=== PATIENT | female | born 1980 | race American Indian/Alaskan Native ===

== ENCOUNTER 2016-10-21 11:51 | Day surgery (SDC) | payer OTHER ==
[2016-10-21] MEDS ORDERED: ANCEF/STERILE WATER 2 GM/20 ML IV NR (12:00)
[2016-10-21 13:08] LABS: Hematocrit 32.3 % (30.3-42.9); Hemoglobin 10.2 gm/dl (10.1-14.3)
--- NOTE | 2016-10-21 13:15 | Anesthesia Consultation ---
Anesthesia Consult and Med Hx Date of service: 10/21/16 - Airway Anesthetic Teeth Evaluation: Good ROM Head & Neck: Adequate Mental/Hyoid Distance: Adequate Mallampati Class: Class II Intubation Access Assessment: Probably Good - Pre-Operative Health Status ASA Pre-Surgery Classification: ASA2 Proposed Anesthetic Plan: General - Pulmonary Hx Smoking: No Hx Sleep Apnea: No (MARY PRE SCREEN LOW RISK) - Cardiovascular System Hx Hypertension: No Hx Cardia Arrhythmia: Yes Hx Heart Murmur: Yes (CAUSES NO PROBLEMS) - Central Nervous System Hx Seizures: No Hx Back Pain: Yes Hx Psychiatric Problems: No - Gastrointestinal Hx Gastroesophageal Reflux Disease: No - Endocrine Hx Renal Disease: Yes (kidney stones, s/p b/l stents) Hx End Stage Renal Disease: No - Hematic Hx Anemia: Yes - Other Systems Hx Alcohol Use: Yes (rare) Hx Substance Use: No Hx Cancer: No Hx Obesity: No
--- NOTE | 2016-10-21 13:16 | Anesthesia Day of Surgery ---
Anesthesia Day of Surgery - Day of Surgery Patient Examined: Yes Patient H&P Reviewed: Yes Patient is NPO: Yes
[2016-10-21] MEDS ORDERED: NACL 0.9% 1000 ML 1,000 ML IV SCH (14:00)
[2016-10-21] MEDS ORDERED: PEPCID IV NR (14:00)
[2016-10-21] MEDS ORDERED: VERSED IV NR (14:00)
[2016-10-21] MEDS ORDERED: DIPRIVAN 10 MG/ML IV ONE (14:50)
[2016-10-21] MEDS ORDERED: XYLOCAINE MPF 2% ONE ×2 (14:58)
[2016-10-21] MEDS ORDERED: DILAUDID ONE (14:59)
[2016-10-21] MEDS ORDERED: ZOFRAN ONE (16:11)
[2016-10-21] MEDS ORDERED: WATER FOR IRRIG STERILE IR ONE (16:30)
[2016-10-21] MEDS ORDERED: NACL 0.9% 1000 ML 1,000 ML ONE (16:40)
[2016-10-21] MEDS ORDERED: TORADOL ONE (16:47)
--- NOTE | 2016-10-21 18:00 | Short Stay Summary ---
Short Stay Documentation Date of service: 10/21/16 - History H&P: obtained from office - Allergies and Medications Current Medications: Allergies No Known Allergies Allergy (Verified 04/16/14 09:41) Home Medications Medication Instructions Recorded Confirmed Last Taken Type Sulfamethoxazole/Trimethoprim 1 each PO BID 10/18/16 10/21/16 10/20/16 22:00 History [Bactrim DS TAB] Active Medications Cefazolin Sodium (Ancef/Sterile Water 2 Gm/20 Ml) 2 gm IV PREOP NR Stop: 10/21/16 23:00 Famotidine (Pepcid) 20 mg IV PREOP NR Stop: 10/21/16 23:59 Last Admin: 10/21/16 13:35 Dose: 20 mg Sodium Chloride (Nacl 0.9% 1000 Ml) 1,000 mls @ 100 mls/hr IV DIRECT TONA Last Admin: 10/21/16 13:33 Dose: 100 mls/hr Midazolam HCl (Versed) 2 mg IV PREOP NR Stop: 10/21/16 23:59 Last Admin: 10/21/16 13:57 Dose: 2 mg - Brief post op/procedure progress note Date of procedure: 10/21/16 Pre-op diagnosis: trent renal stones, retained stent Post-op diagnosis: same Procedure: cysot rt renal eswl, cysto stnet removal of retained stent and placemnt of 6x26 stent rpg Anesthesia: GETA Findings: dif to remove stent w/ eswl required Surgeon: MEAGAN BROWN Estimated blood loss: minimal Pathology: none Condition: stable - Hospital course Hospital course: orpacu home - Disposition Condition at discharge: Good Disposition: DISCHARGED TO HOME OR SELFCARE Short Stay Discharge Plan Activity: advance as tolerated Diet: advance as tolerated Additional Instructions: NO STRAINING. INCREASE ORAL FLUIDS. STRAIN ALL URINE.DO NOT PULL THE STRING. CALL FOR F/U APPT. Follow up with: MEAGAN BROWN MD [Staff Physician] - 7 Days Forms: Outpatient Surgery DC Inst.
--- NOTE | 2016-10-21 18:01 | Post Anesthesia Evaluation ---
- Post Anesthesia Evaluation Patient Participated: Yes Airway Patent: Yes Stable Respiratory Function: Yes Temp > 96.8F: Yes Pain Manageable: Yes Adequeate Hydration: Yes Anesthesia Complications: No Block Receding Appropriately: Not Applicable
[2016-10-21 21:03] VITALS: BP 118/64
--- NOTE | 2016-10-25 08:49 | Operative Report ---
PREOPERATIVE DIAGNOSES: 1. 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 2. History of noncompliance. 3. Bilateral retained stent. 4. Bilateral large renal stone. POSTOPERATIVE DIAGNOSES: 1. 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 2. History of noncompliance. 3. Bilateral retained stent. 4. Bilateral large renal stone. PROCEDURE: Cystoscopy, right ESWL, and right stent removal. SURGEON: Pacheco Hathaway MD. ANESTHESIA: General. SPECIMENS: None. ESTIMATED BLOOD LOSS: Minimal. COMPLICATIONS: None. FINDINGS: No deviation. Stent retained, difficult to pull out required fragmentation and encrustation. CLINICAL INDICATIONS: The patient has a long history of noncompliance. She ____ been had a stent in for well over 18 months. She has large stones understands both before and after the surgery that patient must follow up. We are now trying to get back to baseline with removing and placing stent. The patient was counseled and desired to proceed. DESCRIPTION OF PROCEDURE: The patient was transferred to the OR suite in supine position. Anesthesia begun, dorsal lithotomy, prepped and draped in standard fashion. A 22-Czech scope passed. Attempted passage of wire and pulling out stent unsuccessful due to with some encrustation of the distal J. We began our extracorporeal shock wave lithotripsy. We shocked the right stone encrustation proximal J, which was fragmented into smaller and smaller pieces, did take almost most of the shocks. Attempted pulling stent, but was continued difficulty required shocking the almost full shocks to loosen the proximal J. Eventually, we were able to pull the stent out. The wire was backloaded on the cystoscope. A 6 x 28 double-J stent was passed over the wire under direct and fluoroscopic visualization when the wire and string was removed, nice proximal and distal J. Bladder drained. The patient awakened and transferred to the PACU in good and stable condition. JOB# [id number] ATS/NTS
== END 2016-10-21 18:45 | disposition home or self-care (01) ==
LOC: OR 11:51
PROVIDERS: ATTEND Urology
DX: N20.0 Calculus of kidney (principal); D64.9 Anemia, unspecified; Z72.89 Other problems related to lifestyle
CPT/HCPCS: 36415; 50590; 52332; 81025; 85014; 85018; A4217; C1758; C1769; C2617; J0690; J1170; J1885; J2250; J2405; J2704; J7030; Q9967

== ENCOUNTER 2016-11-18 06:31 | Day surgery (SDC) | payer OTHER ==
[~2016-11-18 06:31] MED LIST: PEPCID PO NR; VERSED IV NR
[2016-11-18] MEDS ORDERED: NACL BACTERIOSTATIC INFILTRATI ONE (07:26)
[2016-11-18] MEDS ORDERED: DIPRIVAN 10 MG/ML IV ONE (07:44)
[2016-11-18] MEDS ORDERED: XYLOCAINE MPF 2% ONE (07:44)
[2016-11-18] MEDS ORDERED: SUBLIMAZE ONE (07:44)
[2016-11-18] MEDS: NACL 0.9% 1000 ML 1,000 ML IV SCH ×2 (07:45→10:39)
[2016-11-18] MEDS ORDERED: VERSED IV NR (08:00)
--- NOTE | 2016-11-18 08:04 | Anesthesia Consultation ---
Anesthesia Consult and Med Hx Date of service: 11/18/16 - Airway Anesthetic Teeth Evaluation: Good ROM Head & Neck: Adequate Mental/Hyoid Distance: Adequate Mallampati Class: Class II Intubation Access Assessment: Probably Good - Pulmonary Exam CTA: Yes - Cardiac Exam Cardiac Exam: RRR - Pre-Operative Health Status ASA Pre-Surgery Classification: ASA2 Proposed Anesthetic Plan: General - Pulmonary Hx Smoking: No Hx Sleep Apnea: No (MARY PRE SCREEN LOW RISK) - Cardiovascular System Hx Hypertension: No Hx Cardia Arrhythmia: Yes (patient states "I have an irregular heartbeat", unknown etiology) Hx Heart Murmur: Yes (CAUSES NO PROBLEMS) - Central Nervous System Hx Seizures: No Hx Back Pain: Yes Hx Psychiatric Problems: No - Gastrointestinal Hx Gastroesophageal Reflux Disease: No - Endocrine Hx Insulin Dependent Diabetes: No - Hematic Hx Anemia: Yes - Other Systems Hx Alcohol Use: Yes (rare) Hx Substance Use: No Hx Cancer: No Hx Obesity: No
--- NOTE | 2016-11-18 08:05 | Anesthesia Day of Surgery ---
Anesthesia Day of Surgery - Day of Surgery Patient Examined: Yes Patient H&P Reviewed: Yes Patient is NPO: Yes
[2016-11-18 08:28] LABS: Hematocrit 32.7 % (30.3-42.9); Hemoglobin 10.3 gm/dl (10.1-14.3)
[2016-11-18] MEDS ORDERED: NACL 0.9% ONE (08:47)
[2016-11-18] MEDS ORDERED: ZOFRAN ONE (09:02)
[2016-11-18] MEDS ORDERED: DECADRON ONE (09:02)
[2016-11-18] MEDS ORDERED: NACL 0.9% IR ONE (09:17)
[2016-11-18] MEDS ORDERED: OMNIPAQUE 300 MG/50 ML (CATH LAB) IV ONE (09:52)
[2016-11-18] MEDS ORDERED: ANCEF/STERILE WATER 2 GM/20 ML IV NR (10:00)
[2016-11-18] MEDS ORDERED: NEO SYNEPHRINE ONE (10:42)
[2016-11-18 11:16] VITALS: BP 125/73
--- NOTE | 2016-11-18 12:28 | Short Stay Summary ---
Short Stay Documentation Date of service: 11/18/16 - History H&P: obtained from office - Allergies and Medications Current Medications: Allergies No Known Allergies Allergy (Verified 04/16/14 09:41) Home Medications Medication Instructions Recorded Confirmed Last Taken Type Sulfamethoxazole/Trimethoprim 1 each PO BID 10/18/16 11/18/16 11/15/16 History [Bactrim DS TAB] - Brief post op/procedure progress note Date of procedure: 11/18/16 Pre-op diagnosis: trent renasl stones, retained stent Post-op diagnosis: same Procedure: cysto rpg left eswl, stent removal, placement 6x28 Anesthesia: GETA Findings: encrusted stent Surgeon: MEAGAN BROWN Pathology: none Specimen disposition: to lab Condition: stable - Hospital course Hospital course: or pacu home - Disposition Condition at discharge: Good Disposition: DISCHARGED TO HOME OR SELFCARE Short Stay Discharge Plan Activity: advance as tolerated Follow up with: MEAGAN BROWN MD [Staff Physician] - 7 Days
--- NOTE | 2016-11-22 01:41 | Operative Report ---
PREOPERATIVE DIAGNOSIS: Bilateral renal large stones, retained stent. POSTOPERATIVE DIAGNOSIS: Bilateral renal large stones, retained stent. PROCEDURE: Cystoscopy; RPG; left ESWL of the stent to remove fragments, encrusted, and stones adjacent to the stent; stent removal; and placement of 6 x 28 double J stent. ANESTHESIA: General. FINDINGS: Encrusted stent. SURGEON: Pacheco Hathaway MD. PATHOLOGY: None. DISPOSITION: Stable to PACU. SPECIMENS: There were no specimens. CONDITION: Stable. CLINICAL INDICATIONS: The patient was counseled RCBA, positive history of noncompliance, complete bilateral staghorns involving down to the ureter, has had multiple procedures, but does not follow up for 1-2 years at a time. She is willing to follow up through with her treatment, but the last stents have been in there for 1-1/2 to 2 years. Approximately 4 weeks ago, we were able to remove the encrusted right stent and placed a new stent and currently, we are doing this on the left side. These were all staged procedure, required multiple procedures including additional percutaneous nephrolithotomy, additional ESWL, additional shockwave treatment of the stone, additional possible open surgeries and stent. She had antibiotics and SCDs. DESCRIPTION OF PROCEDURE: The patient was transferred to the OR suite in supine position, anesthesia, dorsal lithotomy, prepped and draped in standard fashion. A 22-Bulgarian scope passed inspecting the new stent that had been placed approximately 1 month ago. It was surprising to see that there was some encrustation already on that side. Left distal J of the old stent was significantly encrusted. Biplanar fluoroscopy attempted manipulating. A Glidewire was passed up to left renal pelvis adjacent to the stent, attempted pulling the stent, unable to uncurl the proximal J shockwave. ESWL had been begun. We had started targeting the proximal J to loosen the stones attached to this stent and additionally, there was adjacent primary stone in the kidney that was just adjacent and portion of this was fragmented adjacent to this with the shockwave lithotripsy. We then did further shocking of the stent, attempted pulling this further down to the mid ureter, still unable to uncurl proximal J, additional fragmentation were undertaken, contrast injected. There was a fairly large ureter, but no hydronephrosis on preoperative ultrasound. With manipulation and ESWL, we were able to eventually loosen the proximal J, stent was removed, wire backloaded on cystoscope. A 6 x 28 double-J stent was passed over the wire under direct and fluoroscopic visualization. When the wire and string was removed, nice proximal and distal J. Bladder irrigated and drained. The patient awakened and transferred to PACU in good and stable condition. PLAN: This is a multiple staged procedure. The patient will need multiple surgeries including removal, replacement of stents and ESWL, ureteroscopy, and possible percutaneous nephrolithotomy. JOB# [id number] ATS/NTS
== END 2016-11-18 11:56 | disposition home or self-care (01) ==
LOC: OR 06:31
PROVIDERS: ATTEND Urology
DX: N20.0 Calculus of kidney (principal); D64.9 Anemia, unspecified; Z72.89 Other problems related to lifestyle
CPT/HCPCS: 36415; 50590; 52332; 81025; 85014; 85018; A4217; C1758; C1769; C2617; J0690; J1100; J2250; J2370; J2405; J2704; J3010; J7030; Q9967

== ENCOUNTER 2016-12-16 06:39 | Day surgery (SDC) | payer OTHER ==
[2016-12-16] MEDS ORDERED: NACL BACTERIOSTATIC INFILTRATI ONE (07:44)
[2016-12-16] MEDS ORDERED: NACL 0.9% 1000 ML 1,000 ML ONE (07:44)
--- NOTE | 2016-12-16 07:47 | Anesthesia Day of Surgery ---
Anesthesia Day of Surgery - Day of Surgery Patient Examined: Yes Patient H&P Reviewed: Yes Patient is NPO: Yes
--- NOTE | 2016-12-16 07:49 | Anesthesia Consultation ---
Anesthesia Consult and Med Hx Date of service: 12/16/16 - Airway Anesthetic Teeth Evaluation: Good, Crowns (left bottom molar) ROM Head & Neck: Adequate Mental/Hyoid Distance: Adequate Mallampati Class: Class II Intubation Access Assessment: Probably Good - Pulmonary Exam CTA: Yes - Cardiac Exam Cardiac Exam: RRR - Pre-Operative Health Status ASA Pre-Surgery Classification: ASA2 Proposed Anesthetic Plan: General - Pulmonary Hx Smoking: No Hx Sleep Apnea: No (MARY PRE SCREEN LOW RISK) - Cardiovascular System Hx Hypertension: No Hx Cardia Arrhythmia: Yes (patient states "I have an irregular heartbeat", unknown etiology) Hx Heart Murmur: Yes (CAUSES NO PROBLEMS) - Central Nervous System Hx Seizures: No Hx Back Pain: Yes (FROM STONES) Hx Psychiatric Problems: No - Gastrointestinal Hx Gastroesophageal Reflux Disease: No - Endocrine Hx Insulin Dependent Diabetes: No - Hematic Hx Anemia: Yes - Other Systems Hx Alcohol Use: Yes (rare) Hx Substance Use: No Hx Cancer: No Hx Obesity: No
[2016-12-16] MEDS ORDERED: VERSED IV NR (08:00)
[2016-12-16] MEDS ORDERED: NACL 0.9% 1000 ML 1,000 ML IV SCH (08:00)
[2016-12-16] MEDS ORDERED: PEPCID PO NR (08:00)
[2016-12-16] MEDS ORDERED: DIPRIVAN 10 MG/ML IV ONE (08:22)
[2016-12-16] MEDS ORDERED: XYLOCAINE MPF 2% ONE (08:22)
[2016-12-16] MEDS ORDERED: SUBLIMAZE ONE (08:24)
[2016-12-16] MEDS ORDERED: MORPHINE IV PRN (08:30)
[2016-12-16] MEDS ORDERED: ZOFRAN IV PRN (08:30)
[2016-12-16] MEDS ORDERED: PERCOCET 5/325 PO PRN (08:30)
[2016-12-16] MEDS ORDERED: REGLAN ONE (08:51)
[2016-12-16] MEDS ORDERED: ZOFRAN ONE (08:51)
[2016-12-16] MEDS ORDERED: ANCEF/STERILE WATER 2 GM/20 ML IV NR (09:00)
[2016-12-16] MEDS ORDERED: NEO SYNEPHRINE/NS Syringe(OR USE) IV ONE (09:00)
--- NOTE | 2016-12-16 09:12 | Short Stay Summary ---
Short Stay Documentation Date of service: 12/16/16 - History H&P: obtained from office - Allergies and Medications Current Medications: Allergies No Known Allergies Allergy (Verified 04/16/14 09:41) Home Medications Medication Instructions Recorded Confirmed Last Taken Type Sulfamethoxazole/Trimethoprim 1 each PO BID 10/18/16 11/29/16 11/15/16 History [Bactrim DS TAB] Nitrofurantoin [place]/M-Cryst 100 mg PO Q12HR 11/29/16 11/29/16 Unknown History [Macrobid CAP] Active Medications Cefazolin Sodium (Ancef/Sterile Water 2 Gm/20 Ml) 2 gm IV PREOP NR Stop: 12/16/16 23:59 Famotidine (Pepcid) 20 mg PO PREOP NR Stop: 12/16/16 15:00 Last Admin: 12/16/16 08:00 Dose: 20 mg Sodium Chloride (Nacl 0.9% 1000 Ml) 1,000 mls @ 75 mls/hr IV DIRECT TONA Last Admin: 12/16/16 07:45 Dose: 75 mls/hr Midazolam HCl (Versed) 2 mg IV PREOP NR Stop: 12/16/16 23:59 Last Admin: 12/16/16 08:15 Dose: 2 mg Morphine Sulfate (Morphine) 2 mg IV Q10MIN PRN PRN Reason: Pain, Moderate (4-6) Stop: 12/16/16 16:00 Ondansetron HCl (Zofran) 4 mg IV ONCE PRN PRN Reason: Nausea And Vomiting Stop: 12/16/16 15:00 Oxycodone/Acetaminophen (Percocet 5/325) 1 tab PO ONCE PRN PRN Reason: Pain, Moderate (4-6) Stop: 12/16/16 15:00 - Brief post op/procedure progress note Date of procedure: 12/16/16 Pre-op diagnosis: rt reanl stone Post-op diagnosis: same Procedure: rt eswl Anesthesia: GIO Surgeon: AIMEE HART Estimated blood loss: none Pathology: none Condition: stable - Hospital course Hospital course: percocet 10 & post op info on chart, strainer - Disposition Condition at discharge: Stable Disposition: DISCHARGED TO HOME OR SELFCARE Short Stay Discharge Plan Follow up with: PRIMARY CARE,MD [Primary Care Provider] - 7 Days
--- NOTE | 2016-12-16 09:23 | Post Anesthesia Evaluation ---
- Post Anesthesia Evaluation Patient Participated: Yes Airway Patent: Yes Stable Respiratory Function: Yes Nausea/Vomiting: No Temp > 96.8F: Yes Pain Manageable: Yes Adequeate Hydration: Yes Anesthesia Complications: No
--- NOTE | 2016-12-16 09:36 | Operative Report ---
PREOPERATIVE DIAGNOSIS: Right renal stone 8 mm. POSTOPERATIVE DIAGNOSIS: Right renal stone 8 mm status post bilateral stent placement and lithotripsy in the past. PROCEDURE: Right extracorporal shock wave lithotripsy (staged procedure). SURGEON: Ananda Howard MD ANESTHESIA: General. ANESTHESIOLOGIST: Kellie José MD ESTIMATED BLOOD LOSS: Minimal. FLUIDS: Crystalloid. COMPLICATIONS: No complications. INDICATIONS: This patient is a 36-year-old female seen by Dr. Hathaway in the office. Long history of stones status post lithotripsy in the past. She has approximately [address], has bilateral stents at this time. She presents now for surgical intervention. DESCRIPTION OF PROCEDURE: The patient was taken to the operative suite, placed in a supine position. After adequate general anesthesia, her stone was localized in 2 planes using fluoroscopy. Extracorporal shock wave lithotripsy was administered with a maximum kV of 5 and 2500 shocks. Renal pause after 200 shocks for 5 minutes was performed. Adequate fragmentation could be appreciated. She tolerated the procedure well. She was extubated and taken to recovery room. She will go home on Percocet 10 and follow up in the office. JOB# [id number] C/LUCIE
[2016-12-16 11:10] VITALS: BP 120/77
== END 2016-12-16 11:10 | disposition home or self-care (01) ==
LOC: OR 06:39 → EDSEX 08:30 → OR 11:10
PROVIDERS: ATTEND Urology
DX: N20.0 Calculus of kidney (principal); D64.9 Anemia, unspecified; Z72.89 Other problems related to lifestyle
CPT/HCPCS: 50590; 81025; J0690; J2250; J2370; J2405; J2704; J2765; J3010; J7030

== ENCOUNTER 2021-01-26 10:15 | Outpatient (CLI) | payer BC ==
--- NOTE | 2021-01-26 11:40 | Cat Scan Report ---
CT ABDOMEN AND PELVIS WITHOUT CONTRAST HISTORY: CALCULUS OF KIDNEY; pt having surgery on Tuesday. . COMPARISON: None. TECHNIQUE: CT images of the abdomen and pelvis were obtained without administration of intravenous co ntrast. All CT scans at this location are performed using CT dose reduction for ALARA by means of au tomated exposure control. FINDINGS: Lungs/bones: Lung bases are clear Abdomen/pelvis: Within limits of a noncontrast exam the liver, spleen, adrenal glands, pancreas, gal lbladder and upper GI tract appear normal. No bowel obstruction is seen. There are bilateral double-J ureteral stents. Persistent severe bilateral hydroureteronephrosis is se en. Large areas of calcification are seen within the left kidney with within the calyces cortex and i n the region of the left femoral ureteral stent. There are also nonobstructing calcifications within the right kidney. Within the mid to distal left ureter there are calcifications surrounding the left ureteral stent largest measuring 5 mm. Calcifications surrounding the distal left ureteral stent sonya uring 6 mm. Multiple prominent bladder calcifications are seen. Within the left inferior renal pole w ith a large calcifications measures 1.2 cm. IMPRESSION: 1. Severe bilateral hydroureteronephrosis with marked dilatation which persists after ureteral stent placement. Calcifications are seen within both the kidney, calyces and surrounding the proximal urete ral stones. There are also additional calcifications adjacent to the stent within the ureters with ur eteral dilatation and inflammatory change. Bladder calcifications also noted. Signer Name: Ayad Monahan MD Signed: 01/26/2021 11:36 AM Workstation Name: [id number]
== END 2021-01-26 10:16 | disposition home or self-care (01) ==
LOC: CT 10:15
PROVIDERS: ATTEND Urology
DX: N13.30 Unspecified hydronephrosis (principal); N20.0 Calculus of kidney; Z96.0 Presence of urogenital implants
CPT/HCPCS: 74176

== ENCOUNTER 2021-01-29 07:30 | Day surgery (SDC) | payer BC ==
[2021-01-29] MEDS ORDERED: LACTATED RINGERS 1,000 ML ONE (08:30)
[2021-01-29] MEDS ORDERED: HYDROmorphone 1 MG/1 ML INJ IV PRN ×2 (08:40)
--- NOTE | 2021-01-29 08:41 | Anesthesia Day of Surgery ---
Anesthesia Day of Surgery - Day of Surgery Patient Examined: Yes Patient H&P Reviewed: Yes Patient is NPO: Yes
--- NOTE | 2021-01-29 08:41 | Anesthesia Consultation ---
Anesthesia Consult and Med Hx Date of service: 01/29/21 - Airway Anesthetic Teeth Evaluation: Good ROM Head & Neck: Adequate Mental/Hyoid Distance: Adequate Mallampati Class: Class I Intubation Access Assessment: Good - Pre-Operative Health Status ASA Pre-Surgery Classification: ASA1 Proposed Anesthetic Plan: General - Pulmonary Hx Smoking: No Hx Sleep Apnea: No (MARY PRE SCREEN LOW RISK) - Cardiovascular System Hx Hypertension: No Hx Cardia Arrhythmia: Yes (patient states "I have an irregular heartbeat", unknown etiology) Hx Heart Murmur: Yes (CAUSES NO PROBLEMS) - Central Nervous System Hx Seizures: No Hx Back Pain: Yes (FROM STONES) Hx Psychiatric Problems: No - Gastrointestinal Hx Gastroesophageal Reflux Disease: No - Endocrine Hx Renal Disease: Yes (Stones) Hx Insulin Dependent Diabetes: No - Hematic Hx Anemia: Yes (NOT RECENT) - Other Systems Hx Alcohol Use: Yes (rare) Hx Substance Use: No Hx Cancer: No Hx Obesity: No
[2021-01-29] MEDS ORDERED: LIDOCAINE MPF (2%) 20 MG/1 ML VIAL 5 ML ONE (08:44)
[2021-01-29] MEDS ORDERED: propofoL 200 MG/20 ML VIAL IV ONE (08:44)
[2021-01-29] MEDS ORDERED: fentaNYL 100 MCG/2 ML INJ ONE (08:44)
[2021-01-29] MEDS ORDERED: dexAMETHasone 20 MG/5 ML VIAL ONE (08:44)
[2021-01-29] MEDS ORDERED: LACTATED RINGERS 1,000 ML IV SCH (09:00)
[2021-01-29] MEDS ORDERED: MIDAZOLAM 2 MG/2 ML INJ IV NR (09:00)
[2021-01-29] MEDS ORDERED: ONDANSETRON 4 MG/2 ML INJ IV PRN (09:30)
--- NOTE | 2021-01-29 10:10 | Post Operative Note ---
Pre-op diagnosis: calcified stents Post-op diagnosis: same Findings: severe calcified stenrts Procedure: r litho cysto laser eswl Anesthesia: GETA Surgeon: HAN WHITAKER Estimated blood loss: none Pathology: none Condition: stable Disposition: PACU
--- NOTE | 2021-01-29 10:11 | Discharge Summary ---
Short Stay Discharge Plan Activity: other (no straining ) Weight Bearing Status: Full Weight Bearing Diet: regular Special Instructions: other (inc fluids ) Durable Medical Equipment Needed Upon Discharge: other (has stents ) Follow up with: JOHN THAYER MD [Primary Care Provider] - 7 Days HAN WHITAKER MD [Staff Physician] - 7 Days
[2021-01-29] MEDS ORDERED: PHENYLEPHRINE/NS 1,000 MCG/10 ML SYRINGE (OR USE) IV ONE (10:25)
[2021-01-29] MEDS ORDERED: WATER FOR IRRIG STERILE 1,500 ML BOTTLE IR ONE (10:30)
[2021-01-29] MEDS ORDERED: HYDROmorphone 1 MG/1 ML INJ ONE (10:55)
[2021-01-29 13:04] VITALS: BP 130/68
--- NOTE | 2021-01-29 13:50 | Operative Report ---
DATE OF SURGERY: 01/29/2021 PREOPERATIVE DIAGNOSES: Calcified stents that were in for 4 years, poor followup, poorly compliant. POSTOPERATIVE DIAGNOSES: Calcified stents that were in for 4 years, poor followup, poorly compliant. PROCEDURE: Right ESWL with excellent fragmentation and cystoscopy, laser of bladder stones around the stents and attempted to removal of stent with reinsertion of right double-J stent. SURGEON: Dr. Sharma. ANESTHESIA: General. FINDINGS: This is a woman who has been poorly compliant, knew she had a stent left in for 4 years. She has chronic renal insufficiency, hydronephrosis. She now presents for attempted stent removal on the right side. On the left side, there was much more stone burden. We will stage this, she will need multiple procedures over the next few months and may end up losing her kidneys. DESCRIPTION OF PROCEDURE: The patient was brought to the OR and placed on the operating table. Following induction of anesthesia, placed right flank over the F2 focal point. The stones were seen around the stent. Shocks were begun at 1 kV increased to maximum of 7 kV. Total of 2500 shocks were given. Excellent fragmentation around the stent was achieved. It looked very promising. Cystoscopy showed large amount of stone around the stents. We worked very hard with the laser and took most of the stone off the stents. Once we saw the opening, we placed a wire up the right ureter and open ended 6-Togolese coil was placed in the kidney. We tried pulling the stent, it actually came out about 4 or 5 cm, but then it got held up after the UPJ. We had the open ended and we exchanged it with the double J. We did not want to pull, we will let this sit and we will have to go up with the flexible ureteroscope over the next few weeks. The patient tolerated the procedure well. Part of the stent was trimmed, so it would not come out the urethra. We left the Ferrera. She was brought to recovery room in stable condition post-lithotripsy, laser of stones and a second stent placed in the right ureter. TID: [id number] RECEIPT: [id number] VICENTE/ANGEL
--- NOTE | 2021-01-29 16:20 | Post Anesthesia Evaluation ---
- Post Anesthesia Evaluation Patient Participated: Yes Airway Patent: Yes Stable Respiratory Function: Yes Nausea/Vomiting: No Temp > 96.8F: Yes Pain Manageable: Yes Adequeate Hydration: Yes Anesthesia Complications: No Block Receding Appropriately: Not Applicable Patient on Ventilator: No
== END 2021-01-29 14:20 | disposition home or self-care (01) ==
LOC: OR 07:30
PROVIDERS: ATTEND Urology
DX: N13.2 Hydronephrosis with renal and ureteral calculous obstruction (principal); T83.89XA Other specified complication of genitourinary prosthetic devices, implants and grafts, initial encounter; I42.9 Cardiomyopathy, unspecified; Z98.890 Other specified postprocedural states; Z79.899 Other long term (current) drug therapy; Z72.89 Other problems related to lifestyle; Y92.89 Other specified places as the place of occurrence of the external cause; Y82.8 Other medical devices associated with adverse incidents
CPT/HCPCS: 50590; 52356; 81025; C1758; C1769; C2617; J1100; J1170; J2250; J2370; J2405; J2704; J3010; J7120; Q9967

== ENCOUNTER 2021-03-04 12:45 | Inpatient (IN) | payer BC ==
[~2021-03-04 12:45] MED LIST changes: +IOHEXOL 300 MG/ML 50ML IV ONE; +LACTATED RINGERS 1,000 ML IV SCH; +MIDAZOLAM 2 MG/2 ML INJ IV NR; -PEPCID PO NR; -VERSED IV NR; +WATER FOR IRRIG STERILE 2000 ML IR ONE
[2021-03-04] MEDS ORDERED: ceFAZolin/Water 2 GM/20 ML 2 GM/20 ML SYRINGE IV ONE (14:22)
--- NOTE | 2021-03-04 14:35 | Anesthesia Day of Surgery ---
Anesthesia Day of Surgery - Day of Surgery Patient Examined: Yes Patient H&P Reviewed: Yes Patient is NPO: Yes
--- NOTE | 2021-03-04 14:35 | Anesthesia Consultation ---
Anesthesia Consult and Med Hx Date of service: 03/04/21 - Airway Anesthetic Teeth Evaluation: Good ROM Head & Neck: Adequate Mental/Hyoid Distance: Adequate Mallampati Class: Class III Intubation Access Assessment: Possibly Difficult (previous LMA 4) - Pre-Operative Health Status ASA Pre-Surgery Classification: ASA2 Proposed Anesthetic Plan: General - Pulmonary Hx Smoking: No Hx Respiratory Symptoms: No Hx Sleep Apnea: No (MARY PRE SCREEN LOW RISK) - Cardiovascular System Hx Hypertension: No Hx Heart Attack/AMI: No Hx Cardia Arrhythmia: Yes (remote hx irregular heartbeat; no recent symptoms, no meds) Hx Pacemaker: No Hx Internal Defibrillator: No - Central Nervous System CVA: No - Endocrine Hx Renal Disease: No Hx Liver Disease: No Hx Insulin Dependent Diabetes: No Hx Non-Insulin Dependent Diabetes: No Hx Thyroid Disease: No - Hematic Hx Anemia: Yes (no recent transfusions) - Other Systems Hx Obesity: Yes (BMI 31) - Additional Comments Anesthesia Medical History Comments: No hx anesthetic complications.
[2021-03-04] MEDS ORDERED: HYDROcodone/ACETAMINOPHEN 5-325 MG TAB PO PRN (15:30)
[2021-03-04] MEDS ORDERED: HYDROmorphone 1 MG/1 ML INJ IV PRN ×2 (15:30→16:13)
[2021-03-04] MEDS ORDERED: SCOPOLAMINE TRANSDERMAL PATCH 72 HR TD NR (15:30)
[2021-03-04] MEDS ORDERED: ONDANSETRON 4 MG/2 ML INJ IV PRN (15:30)
[2021-03-04] MEDS ORDERED: oxyCODONE /ACETAMINOPHEN 5-325MG TAB PO PRN (16:03)
[2021-03-04] MEDS ORDERED: ALBUTEROL 2.5 MG/3 ML NEBU IH PRN (16:03)
[2021-03-04] MEDS ORDERED: ACETAMINOPHEN 325 MG TAB PO PRN ×2 (16:03→16:13)
[2021-03-04] MEDS ORDERED: SODIUM CHLORIDE 0.9% 1000 ML IV SOLN IV ONE (16:13)
--- NOTE | 2021-03-04 16:13 | History and Physical Report ---
History of Present Illness Chief complaint: I have fever History of present illness: 40 YO Female with Obesity Hypoventilation Syndrome, Anemia, Nephrolithisis admitted directly from day surgery at the request of Dr. Sharma. Pt was found to have fever to 101 degrees Fahrenheit. Patient seen and evaluated in her gavino m. Patient denies fever, chills, chest pain, palpitation, productive cough, skin rash, recent ill contacts, or known exposure to COVID-19. Past History Past Medical History: other (see hpi) Past Surgical History: No surgical history, Other Social history: , lives with family. denies: smoking, alcohol abuse, prescription drug abuse Family history: hypertension Medications and Allergies Allergies Allergy/AdvReac Type Severity Reaction Status Date / Time latex Allergy Swelling Verified 02/20/21 17:20 Home Medications Medication Instructions Recorded Confirmed Last Taken Type Ibuprofen [Motrin] 800 mg PO Q8HR PRN 01/26/21 03/04/21 02/24/21 History Ondansetron HCl [Zofran] 4 mg PO PRN PRN 01/26/21 03/04/21 03/04/21 11:00 History Acetaminophen [Tylenol] 325 mg PO PRN PRN MDD pain 02/20/21 03/04/21 03/02/21 History Mv-Mn/Folic Acid/Vit [id number] 1 tab PO DAILY 02/20/21 03/04/21 03/03/21 History [Alive Once Daily Women 50 Plus] Active Meds: Active Medications Acetaminophen (Acetaminophen 325 Mg Tab) 650 mg PO Q4H PRN PRN Reason: Pain MILD(1-3)/Fever >100.5/GARCIAS Hydrocodone Bitart/Acetaminophen (Hydrocodone/Acetaminophen 5-325 Mg Tab) 2 each PO ONCE PRN PRN Reason: Pain, Moderate (4-6) Albuterol (Albuterol 2.5 Mg/3 Ml Nebu) 2.5 mg IH Q4HRT PRN PRN Reason: Shortness Of Breath Hydromorphone HCl (Hydromorphone 1 Mg/1 Ml Inj) 0.5 mg IV Q10MIN PRN PRN Reason: Pain , Severe (7-10) Hydromorphone HCl (Hydromorphone 1 Mg/1 Ml Inj) 0.5 mg IV Q3H PRN PRN Reason: Pain , Severe (7-10) Lactated Ringer's (Lactated Ringers) 1,000 mls @ 100 mls/hr IV DIRECT TONA Stop: 03/04/21 23:59 Sodium Chloride (Nacl 0.9% 1000 Ml) 1,000 mls @ 125 mls/hr IV DIRECT TONA Midazolam HCl (Midazolam 2 Mg/2 Ml Inj) 2 mg IV PREOP NR Stop: 03/04/21 23:00 Miscellaneous Medication (Mv-Mn/Folic Acid/Vit [id number] [Alive Once Daily Women 50 Plus]) 1 tab PO DAILY TONA Ondansetron HCl (Ondansetron 4 Mg/2 Ml Inj) 4 mg IV ONCE PRN PRN Reason: Nausea And Vomiting Ondansetron HCl (Ondansetron 4 Mg/2 Ml Inj) 4 mg IV Q8H PRN PRN Reason: Nausea And Vomiting Oxycodone/Acetaminophen (Oxycodone /Acetaminophen 5-325mg Tab) 1 tab PO Q6H PRN PRN Reason: Pain, Moderate (4-6) Scopolamine (Scopolamine Transdermal Patch 72 Hr) 1 each TD PREOP NR Stop: 03/05/21 23:59 Sodium Chloride (Sodium Chloride 0.9% 10 Ml Flush Syringe) 10 ml IV BID TONA Sodium Chloride (Sodium Chloride 0.9% 10 Ml Flush Syringe) 10 ml IV PRN PRN PRN Reason: LINE FLUSH Review of Systems Constitutional: fever, no weight loss, no weight gain, no fatigue, no weakness, no malaise Ears, nose, mouth and throat: no ear pain, no tinnitis, no decreased hearing, no nasal congestion, no sinus pressure, no sinus pain Breasts: no change in shape, no swelling, no mass Cardiovascular: no chest pain, no orthopnea, no palpitations, no edema Respiratory: no cough, no hemoptysis, no shortness of breath Gastrointestinal: no abdominal pain, no nausea, no vomiting, no diarrhea, no constipation, no change in bowel habits Genitourinary Female: no pelvic pain, no flank pain, no dysuria, no urinary frequency, no urgency Rectal: no pain, no incontinence, no bleeding Musculoskeletal: no neck stiffness, no neck pain, no low back pain, no leg numbness/tingling Integumentary: no rash, no pruritis, no sores Neurological: no transient paralysis, no paralysis, no weakness, no parathesias, no numbness, no tingling Psychiatric: no anxiety, no memory loss, no change in sleep habits, no hypersomnia, no suicidal ideation, no disorientation, no hallucinations Endocrine: no cold intolerance, no polyphagia, no excessive thirst, no polyuria Hematologic/Lymphatic: no easy bruising, no easy bleeding Allergic/Immunologic: no urticaria Exam - Constitutional General appearance: Present: mild distress, obese - EENT Eyes: Present: PERRL ENT: hearing intact, clear oral mucosa - Neck Neck: Present: supple, normal ROM - Respiratory Respiratory effort: normal Respiratory: bilateral: CTA - Cardiovascular Heart Sounds: Present: S1 & S2. Absent: rub, click - Extremities Extremities: pulses symmetrical, No edema Peripheral Pulses: within normal limits - Abdominal General gastrointestinal: Present: soft, non-tender, non-distended, normal bowel sounds Female genitourinary: Present: normal - Integumentary Integumentary: Present: clear, warm, dry - Musculoskeletal Musculoskeletal: gait normal, strength equal bilaterally - Psychiatric Psychiatric: appropriate mood/affect, intact judgment & insight - Neurologic Neurologic: CNII-XII intact, moves all extremities Results - Labs CBC & Chem 7: 03/04/21 15:10 Assessment and Plan - Patient Problems (1) SIRS (systemic inflammatory response syndrome) Current Visit: Yes Status: Acute Plan to address problem: Chest x-ray, CBC, urinalysis, IV antibiotic therapy, blood cultures. Repeat CBC in a.m. (2) UTI (urinary tract infection) Current Visit: Yes Status: Acute Qualifiers: Encounter type: initial encounter Plan to address problem: CBC, CMP, urinalysis, IV antibiotic therapy, (3) Renal calculus, bilateral Current Visit: No Status: Chronic Plan to address problem: Urology team consulted in ED, further care as per urology team. (4) DVT prophylaxis Current Visit: Yes Status: Acute Plan to address problem: SCD to bilateral lower extremities while in bed
[2021-03-04 16:23] LABS: Bacteria,Urine 2+ /HPF (Negative); Bilirubin,Urine NEG (Negative); Blood,Urine MOD (Negative); Color,Urine Yellow (Yellow); Mucus,Urine FEW /HPF; Urobilinogen,Urine < 2.0 mg/dL (<2.0)
[2021-03-04 16:26] LABS: Protein,Urine >500 mg/dL (Negative); WBC,Urine > 182.0 /HPF (0.0-6.0)
[2021-03-04 16:41] LABS: Hematocrit 22.3 % (30.3-42.9); Hemoglobin 7.3 gm/dl (10.1-14.3); Mean Corpuscular HGB Conc 33 % (30-34); Mean Corpuscular Volume 73 fl (79-97); Platelet Count 590 K/mm3 (140-440); Red Blood Count 3.05 M/mm3 (3.65-5.03); Red Cell Distribution Width 18.6 % (13.2-15.2)
[2021-03-04] MEDS: CEFEPIME/NS 2 GM/100 ML 2 GM/100 ML BAG IV SCH (17:24)
[2021-03-04] MEDS: SODIUM CHLORIDE 0.9% 1000 ML 1,000 ML IV SCH (17:26)
[2021-03-04] MEDS: ONDANSETRON 4 MG/2 ML INJ IV PRN (21:35)
[2021-03-04] MEDS: HYDROmorphone 1 MG/1 ML INJ IV PRN (21:39)
[2021-03-05] MEDS: SODIUM CHLORIDE 0.9% 1000 ML 1,000 ML IV SCH (02:05)
[2021-03-05 04:29] LABS: Albumin 3.6 g/dL (3.9-5); Calcium 9.3 mg/dL (8.4-10.2)
[2021-03-05] MEDS: HYDROmorphone 1 MG/1 ML INJ IV PRN ×3 (05:04→17:20)
[2021-03-05] MEDS: ONDANSETRON 4 MG/2 ML INJ IV PRN ×2 (05:05→17:23)
[2021-03-05] MEDS: CEFEPIME/NS 2 GM/100 ML 2 GM/100 ML BAG IV SCH ×2 (05:05→17:30)
--- NOTE | 2021-03-05 05:35 | Consultation ---
DATE OF CONSULTATION: 03/04/2021 HISTORY OF PRESENT ILLNESS: The patient is a 40-year-old woman who has been so poorly compliant that she has left both stents in and unfortunately has a renal damage. She presents now to try to get rid of the right stents. Unfortunately, she went to the urgent care over the weekend and never got her antibiotics ____ pain. We tried to ____ it on Tuesday, but she did not get it and she has 100.5 fever right now. I do not feel comfortable doing anything without significant IV parenteral antibiotics on board. I spoke to Dr. Ortiz who agrees. We will admit her, put her on IV antibiotics at least for a day and try to do this tomorrow or later in the week or weekend if needed. All risks and implications discussed. PAST MEDICAL HISTORY: Endometriosis, stones, ovarian cyst. SOCIAL HISTORY: Noncontributory. ALLERGIES: Negative. REVIEW OF SYSTEMS: She just feels a little fatigued. Occasional spike in temperature, she said at home. PHYSICAL EXAMINATION: GENERAL: On exam, she is in no distress. ABDOMEN: Soft. IMPRESSION: Bilateral severe stone disease, bilateral retained stents, ____ IV antibiotics, possible procedure tomorrow. TID: [id number] RECEIPT: [id number] VICENTE/RAFIQ/NAVEEN
[2021-03-05] MEDS ORDERED: FOLIC ACID PO SCH (10:00)
[2021-03-05] MEDS ORDERED: MV MN PO SCH (10:00)
[2021-03-05] MEDS ORDERED: [UNRECOGNIZED DRUG - OTHER] PO SCH (10:00)
[2021-03-05] MEDS ORDERED: VIT K PO SCH (10:00)
[2021-03-05] MEDS ORDERED: fentaNYL 100 MCG/2 ML INJ ONE (11:00)
[2021-03-05] MEDS ORDERED: propofoL 200 MG/20 ML VIAL IV ONE (11:00)
[2021-03-05] MEDS ORDERED: dexAMETHasone 20 MG/5 ML VIAL ONE (11:00)
[2021-03-05] MEDS ORDERED: LIDOCAINE MPF (2%) 20 MG/1 ML VIAL 5 ML ONE (11:00)
[2021-03-05] MEDS ORDERED: ePHEDrine SULFATE 50 MG/1 ML INJ ONE (11:00)
[2021-03-05] MEDS ORDERED: LACTATED RINGERS 1000 ML IV SOLN ONE (11:00)
[2021-03-05] MEDS ORDERED: ONDANSETRON 4 MG/2 ML INJ ONE (11:00)
[2021-03-05 12:31] LABS: HCG Qualitative,Urine Negative (Negative)
[2021-03-05] MEDS ORDERED: ONDANSETRON 4 MG/2 ML INJ IV PRN (12:31)
[2021-03-05] MEDS ORDERED: HYDROmorphone 1 MG/1 ML INJ IV PRN (12:31)
--- NOTE | 2021-03-05 12:31 | Anesthesia Day of Surgery ---
Anesthesia Day of Surgery - Day of Surgery Patient Examined: Yes Patient H&P Reviewed: Yes Patient is NPO: Yes
[2021-03-05] MEDS ORDERED: GENTAMICIN 40 MG/ML VIAL 2 ML ONE (12:32)
[2021-03-05] MEDS ORDERED: SODIUM CHLORIDE 0.9% 100 ML ONE (12:33)
[2021-03-05] MEDS ORDERED: WATER FOR IRRIG STERILE 2000 ML IR ONE (13:08)
[2021-03-05] MEDS ORDERED: IOHEXOL 300 MG/ML 50ML IV ONE (13:08)
[2021-03-05] MEDS ORDERED: WATER FOR IRRIG STERILE 1,000 ML BOTTLE IR ONE (13:08)
--- NOTE | 2021-03-05 15:27 | Fluoroscopy Report ---
INTRAOPERATIVE FLUOROSCOPY: RETROGRADE PYELOGRAPHY INDICATION: HYDRONEPHROSIS. TECHNIQUE: Intraoperative spot images were obtained during the procedure. FINDINGS: On the initial images, there are bilateral ureteral stents, that on the right extends into the urethr a. Right ureteral stent proximal pigtail is incompletely formed and somewhat low and there is dilatat ion of the right renal collecting system. Balloon dilatation was performed. On the final images there are 2 right ureteral stents. Please see procedure note for details. Fluoroscopy Time: 3 minutes 22 seconds. Fluoroscopy Images: 7. Signer Name: Jason Roth MD Signed: 03/05/2021 3:22 PM Workstation Name: [id number]
[2021-03-05 15:59] VITALS: BP 158/59
--- NOTE | 2021-03-05 16:47 | Post Operative Note ---
Date of procedure: 03/05/21 Pre-op diagnosis: retained stents Post-op diagnosis: same Findings: severe stones Procedure: cysto ureteroscopy laser Anesthesia: GIO Surgeon: HAN WHITAKER Estimated blood loss: none Pathology: none Condition: stable Disposition: PACU
--- NOTE | 2021-03-05 16:48 | Discharge Summary ---
Short Stay Discharge Plan Activity: other Weight Bearing Status: Full Weight Bearing Diet: regular Follow up with: JOHN THAYER MD [Primary Care Provider] - 7 Days HAN WHITAKER MD [Staff Physician] - 7 Days
--- NOTE | 2021-03-05 17:32 | Operative Report ---
DATE OF SURGERY: 03/05/2021 PREOPERATIVE DIAGNOSES: Four-your retained stents bilaterally with severe encrustation. POSTOPERATIVE DIAGNOSES: Four-your retained stents bilaterally with severe encrustation. PROCEDURE PERFORMED: Cystoscopy, right retrograde, right ureteral balloon dilatation, laser and ureteroscopy of encrusted stent, removal of partial stent with untwisting of the upper coil and reinsertion of a 7-[place]ian double J. SURGEON: Dr. Sharma. ANESTHESIA: General. FINDINGS: This is a woman who left her stents in for 4 years knowingly, decided not to follow up. She had foul-smelling urine. Yesterday she had a low-grade fever, so we kept her overnight for antibiotics. She now presents for attempted removal on the right side. DESCRIPTION OF PROCEDURE: The patient was brought to the operating room and placed on the operating table. Following induction of anesthesia, placed in lithotomy position, prepped and draped in usual sterile fashion. We tried gently pulling on the stent and there was no success. The stent that was placed a few weeks ago was easily removed over a wire and the wire coiled in the kidney. There was a stone along the encrusted stent in the mid ureter. We went in with the flexible and then the rigid ureteroscope and lasered it and did pretty well. We were able to pull the stent and straighten it. As we were removing it, it broke. The upper coil re-twisted, but I think it will be easily retrieved from above. We placed a 7-[place]ian double J. The patient tolerated the procedure well. There was [id number] hydronephrosis bilaterally. I am concerned that she will eventually be on dialysis for chronic renal insufficiency, but right now, the plan will be outpatient stent removal within the next week by Dr. Vidal who has just seen the patient and she can go home on p.o. antibiotics to follow up with him. TID: [id number] RECEIPT: [id number] VICENTE/SILVINA
--- NOTE | 2021-03-05 17:54 | Progress Note ---
Assessment and Plan Assessment and plan: 40 YO Female with Obesity Hypoventilation Syndrome, Anemia, Nephrolithisis admitted directly from day surgery at the request of Dr. Sharma. Pt was found to have fever to 101 degrees Fahrenheit. Patient seen and evaluated in her room. Patient denies fever, chills, chest pain, palpitation, productive cough, skin rash, recent ill contacts, or known exposure to COVID-19. (1) SIRS (systemic inflammatory response syndrome) Current Visit: Yes Status: Acute Plan to address problem: Chest x-ray, CBC, urinalysis, IV antibiotic therapy, blood cultures. Repeat CBC in a.m. Follow cultures Pending antibiotics on discharge (2) UTI (urinary tract infection) Current Visit: Yes Status: Acute Qualifiers: Encounter type: initial encounter Plan to address problem: CBC, CMP, urinalysis, IV antibiotic therapy, (3) Renal calculus, bilateral Current Visit: No Status: Chronic Plan to address problem: Urology team consulted in ED, further care as per urology team. Patient is status post-cysto ureteroscopy laser (4) DVT prophylaxis Current Visit: Yes Status: Acute Plan to address problem: SCD to bilateral lower extremities while in bed History Interval history: Patient seen and examined post Procedure ambulated to the bathroom no difficulty. Hospitalist Physical - Physical exam Narrative exam: VITAL SIGNS: Reviewed. GENERAL: The patient appears normally developed, mildly obese, vital signs as documented. HEAD: No signs of head trauma. EYES: Pupils are equal. Extraocular motions intact. EARS: Hearing grossly intact. MOUTH: Oropharynx is normal. NECK: No adenopathy, no JVD. CHEST: Chest with clear breath sounds bilaterally. No wheezes, rales, or rhonchi. CARDIAC: Regular rate and rhythm. S1 and S2, without murmurs, gallops, or rubs. VASCULAR: No Edema. Peripheral pulses normal and equal in all extremities. ABDOMEN: Soft, non tender and non distended. No rebound or guarding, and no masses palpated. Bowel Sounds normal. MUSCULOSKELETAL: Good range of motion of all major joints. Extremities without clubbing, cyanosis or edema. NEUROLOGIC EXAM: Alert and oriented x 3 No focal sensory or strength deficits. Speech normal. Follows commands. PSYCHIATRIC: Mood normal. SKIN: detail exam as documented in skin assessment - Constitutional Vitals: Temp Pulse Resp BP Pulse Ox 97.7 F 85 20 158/59 96 03/05/21 15:00 03/05/21 15:00 03/05/21 15:00 03/05/21 15:00 03/05/21 16:31 General appearance: Present: mild distress, obese Results - Labs CBC & Chem 7: 03/04/21 15:10 03/05/21 03:39 Labs: Laboratory Last Values WBC 10.1 K/mm3 (4.5-11.0) 03/04/21 15:10 RBC 3.05 M/mm3 (3.65-5.03) L 03/04/21 15:10 Hgb 7.3 gm/dl (10.1-14.3) L 03/04/21 15:10 Hct 22.3 % (30.3-42.9) L 03/04/21 15:10 MCV 73 fl (79-97) L 03/04/21 15:10 MCH 24 pg (28-32) L 03/04/21 15:10 MCHC 33 % (30-34) 03/04/21 15:10 RDW 18.6 % (13.2-15.2) H 03/04/21 15:10 Plt Count 590 K/mm3 (140-440) H 03/04/21 15:10 Sodium 139 mmol/L (137-145) 03/05/21 03:39 Potassium 4.6 mmol/L (3.6-5.0) 03/05/21 03:39 Chloride 106.1 mmol/L (98-107) 03/05/21 03:39 Carbon Dioxide 21 mmol/L (22-30) L 03/05/21 03:39 Anion Gap 17 mmol/L 03/05/21 03:39 BUN 16 mg/dL (7-17) 03/05/21 03:39 Creatinine 1.7 mg/dL (0.6-1.2) H 03/05/21 03:39 Estimated GFR 40 ml/min 03/05/21 03:39 BUN/Creatinine Ratio 9 % 03/05/21 03:39 Glucose 89 mg/dL (65-100) 03/05/21 03:39 Lactic Acid 0.50 mmol/L (0.7-2.0) L 03/04/21 23:20 Calcium 9.3 mg/dL (8.4-10.2) 03/05/21 03:39 Total Bilirubin 0.20 mg/dL (0.1-1.2) 03/05/21 03:39 AST 12 units/L (5-40) 03/05/21 03:39 ALT 8 units/L (7-56) 03/05/21 03:39 Alkaline Phosphatase 81 units/L (35-129) 03/05/21 03:39 Total Protein 7.0 g/dL (6.3-8.2) 03/05/21 03:39 Albumin 3.6 g/dL (3.9-5) L 03/05/21 03:39 Albumin/Globulin Ratio 1.1 % 03/05/21 03:39 Urine Color Yellow (Yellow) 03/04/21 13:44 Urine Turbidity Cloudy (Clear) 03/04/21 13:44 Urine pH 7.0 (5.0-7.0) 03/04/21 13:44 Ur Specific [place] 1.011 (1.003-1.030) 03/04/21 13:44 Urine Protein >500 mg/dL (Negative) 03/04/21 13:44 Urine Glucose (UA) Neg mg/dL (Negative) 03/04/21 13:44 Urine Ketones Neg mg/dL (Negative) 03/04/21 13:44 Urine Blood Mod (Negative) 03/04/21 13:44 Urine Nitrite Neg (Negative) 03/04/21 13:44 Urine Bilirubin Neg (Negative) 03/04/21 13:44 Urine Urobilinogen < 2.0 mg/dL (<2.0) 03/04/21 13:44 Ur Leukocyte Esterase Lg (Negative) 03/04/21 13:44 Urine WBC (Auto) > 182.0 /HPF (0.0-6.0) H 03/04/21 13:44 Urine RBC (Auto) 115.0 /HPF (0.0-6.0) 03/04/21 13:44 U Epithel Cells (Auto) 3.0 /HPF (0-13.0) 03/04/21 13:44 Urine Bacteria (Auto) 2+ /HPF (Negative) 03/04/21 13:44 Urine WBC Clumps 3+ /HPF 03/04/21 13:44 Urine Mucus Few /HPF 03/04/21 13:44 Urine Yeast (Budding) 3+ /HPF 03/04/21 13:44 Urine HCG, Qual Negative (Negative) 03/05/21 10:55 Microbiology: Microbiology 03/04/21 13:44 Urine,Clean Catch Urine Culture - Preliminary 03/04/21 23:20 Peripheral/Venous Blood Culture - Preliminary Culture in Progress 03/04/21 23:20 Peripheral/Venous Blood Culture - Preliminary Culture in Progress Ferrera/IV: Voiding Method Toilet Active Medications - Current Medications Current Medications: Generic Name Dose Route Start Last Admin Trade Name Freq PRN Reason Stop Dose Admin Acetaminophen 650 mg 03/04/21 16:03 03/04/21 17:24 Acetaminophen 325 Mg Tab PO 650 mg Q4H PRN Administration Pain MILD(1-3)/Fever >100.5/AGRCIAS Albuterol 2.5 mg 03/04/21 16:03 Albuterol 2.5 Mg/3 Ml Nebu IH Q4HRT PRN Shortness Of Breath Hydromorphone HCl 0.5 mg 03/04/21 16:03 03/05/21 17:20 Hydromorphone 1 Mg/1 Ml Inj IV 0.5 mg Q3H PRN Administration Pain , Severe (7-10) Hydromorphone HCl 0.25 mg 03/04/21 16:13 03/05/21 14:20 Hydromorphone 1 Mg/1 Ml Inj IV 0.25 mg Q4H PRN Administration Pain, Moderate (4-6) Hydromorphone HCl 0.5 mg 03/05/21 12:31 03/05/21 14:01 Hydromorphone 1 Mg/1 Ml Inj IV 03/05/21 23:59 0.5 mg Q10MIN PRN Administration Pain , Severe (7-10) Sodium Chloride 1,000 mls @ 125 mls/hr 03/04/21 16:15 03/05/21 02:05 Nacl 0.9% 1000 Ml IV 125 mls/hr DIRECT TONA Administration Cefepime HCl 2 gm in 100 mls @ 200 mls/hr 03/04/21 18:00 03/05/21 17:30 Cefepime/Ns 2 Gm/100 Ml IV 200 mls/hr Q12H TONA Administration Protocol Ondansetron HCl 4 mg 03/04/21 16:03 03/05/21 17:23 Ondansetron 4 Mg/2 Ml Inj IV 4 mg Q8H PRN Administration Nausea And Vomiting Ondansetron HCl 4 mg 03/05/21 12:31 Ondansetron 4 Mg/2 Ml Inj IV ONCE PRN Nausea And Vomiting Oxycodone/Acetaminophen 1 tab 03/04/21 16:03 Oxycodone /Acetaminophen 5-325mg Tab PO Q6H PRN Pain, Moderate (4-6) Scopolamine 1 each 03/04/21 15:30 Scopolamine Transdermal Patch 72 Hr TD 03/05/21 23:59 PREOP NR Sodium Chloride 10 ml 03/04/21 17:00 03/05/21 10:22 Sodium Chloride 0.9% 10 Ml Flush Syringe IV Not Given BID TONA Sodium Chloride 10 ml 03/04/21 16:03 Sodium Chloride 0.9% 10 Ml Flush Syringe IV PRN PRN LINE FLUSH
--- NOTE | 2021-03-09 10:22 | Operative Report ---
DATE OF SURGERY: 03/05/2021 PREOPERATIVE DIAGNOSIS: Poorly compliant 4-year stents left in. POSTOPERATIVE DIAGNOSIS: Poorly compliant 4-year stents left in. PROCEDURES: Cystoscopy, right stent exchange, right ureteroscopy, laser of multiple stones with partial extraction of right stent. SURGEON: Dr. Sharma. ANESTHESIA: General. FINDINGS: This is a woman who presents with a retained 4-year-old stent bilaterally. She now presents for second stage ureteroscopy. DESCRIPTION OF PROCEDURE: The patient was brought to the OR and placed on the operating table. Following induction of anesthesia, placed in lithotomy position, prepped and draped in sterile fashion. The stent would not come out. At this point, we placed the ureteroscope. We ballooned it where it was narrowed. We would laser the stone and multiple stones along the stent. The patient tolerated the procedure well. The upper coil uncoiled, but as we were pulling it, it snapped in the mid ureter. It looks like we got most of the stone. I contacted Dr. Vidal. We will try to get it from above as needed. I explained this to the patient. She tolerated the procedure well and the plan will be to try to retrieve the upper portion of the stent from above. TID: [id number] RECEIPT: [id number] VICENTE/HEATHER
== END 2021-03-05 19:34 | disposition home or self-care (01) | DRG 660 ==
LOC: OR 12:45 → 3B-SURG 16:03
PROVIDERS: ADMIT Internal Medicine; ATTEND Urology
PROC: BT14ZZZ Fluoroscopy of Kidneys, Ureters and Bladder (ICD-10-PCS; principal; 2021-03-05)
PROC: 0T768DZ Dilation of Right Ureter with Intraluminal Device, Via Natural or Artificial Opening Endoscopic (ICD-10-PCS; 2021-03-05)
PROC: 0TC68ZZ Extirpation of Matter from Right Ureter, Via Natural or Artificial Opening Endoscopic (ICD-10-PCS; 2021-03-05)
PROC: 0TP98DZ Removal of Intraluminal Device from Ureter, Via Natural or Artificial Opening Endoscopic (ICD-10-PCS; 2021-03-05)
DX: N13.2 Hydronephrosis with renal and ureteral calculous obstruction (principal); R65.10 Systemic inflammatory response syndrome (SIRS) of non-infectious origin without acute organ dysfunction; E66.2 Morbid (severe) obesity with alveolar hypoventilation; N39.0 Urinary tract infection, site not specified; D64.9 Anemia, unspecified; Z82.49 Family history of ischemic heart disease and other diseases of the circulatory system; Z91.040 Latex allergy status; Z79.899 Other long term (current) drug therapy
CPT/HCPCS: 36415; 74420; 80053; 81001; 81025; 82140; 85027; 87040; 87086; G0378; A4217; C1726; C1758; C1769; C2617; J0690; J0692; J1100; J1170; J1580; J2250; J2405; J2704; J3010; J7030; J7120; Q9967

== ENCOUNTER 2021-03-12 10:38 | Day surgery (SDC) | payer BC ==
[2021-03-12 11:45] LABS: Hemoglobin 7.1 gm/dl (10.1-14.3); Mean Corpuscular HGB Conc 32 % (30-34); Mean Corpuscular Volume 73 fl (79-97); Platelet Count 574 K/mm3 (140-440); Red Blood Count 3.04 M/mm3 (3.65-5.03); Red Cell Distribution Width 19.1 % (13.2-15.2)
[2021-03-12 11:53] LABS: INR 1.06 (0.87-1.13)
[2021-03-12 11:54] LABS: Partial Thromboplastin Time 29.1 Sec. (24.2-36.6)
[2021-03-12 11:59] LABS: Calcium 10.2 mg/dL (8.4-10.2)
[2021-03-12] MEDS ORDERED: SODIUM CHLORIDE 0.9% 500 ML 500 ML IV SCH (12:00)
[2021-03-12] MEDS ORDERED: HYDROcodone/ACETAMINOPHEN 5-325 MG TAB PO ONE (12:06)
[2021-03-12] MEDS ORDERED: SODIUM CHLORIDE IRRI 500 ML 500 ML IR ONE (12:28)
[2021-03-12] MEDS ORDERED: LIDOCAINE (2%) 20 MG/1 ML VIAL 20 ML MDV INFILTRATI ONE (12:29)
[2021-03-12] MEDS: MIDAZOLAM 2 MG/2 ML INJ ONE ×3 (13:05→14:21)
[2021-03-12] MEDS: fentaNYL 100 MCG/2 ML INJ ONE ×3 (13:05→14:21)
--- NOTE | 2021-03-12 14:45 | Short Stay Summary ---
Short Stay Documentation Date of service: 03/12/21 - History Principal diagnosis: Right retained ureteral stent fragment Past Medical History: other (History of bilateral ureteral stents that had been in place for more than 4 years) Past Surgical History: Other (Attempted endoscopic removal of stent) Social history: no significant social history - Allergies and Medications Current Medications: Allergies latex Allergy (Verified 02/20/21 17:20) Swelling Home Medications Medication Instructions Recorded Confirmed Last Taken Type Ibuprofen [Motrin] 800 mg PO Q8HR PRN 01/26/21 03/04/21 02/24/21 History Ondansetron HCl [Zofran] 4 mg PO PRN PRN 01/26/21 03/04/21 03/04/21 11:00 History Acetaminophen [Tylenol] 325 mg PO PRN PRN MDD pain 02/20/21 03/04/21 03/02/21 History Mv-Mn/Folic Acid/Vit [id number] 1 tab PO DAILY 02/20/21 03/04/21 03/03/21 History [Alive Once Daily Women 50 Plus] levoFLOXacin [Levaquin] 750 mg PO QDAY #7 tablet 03/05/21 Unknown Rx Active Medications Sodium Chloride (Nacl 0.9% 500 Ml) 500 mls @ 50 mls/hr IV DIRECT TONA - Physical exam General appearance: no acute distress HEENT: Atraumatic, EOMI Lungs: Normal air movement Breasts: deferred Heart: Regular rate Gastrointestinal: normal Female Genitourinary: deferred Rectal Exam: deferred Extremities: no ischemia Neurological: Normal speech - Brief post op/procedure progress note Date of procedure: 03/12/21 Pre-op diagnosis: Retained right ureteral stent fragment Post-op diagnosis: same Procedure: Attempted removal of right ureteral stent fragment, placement of 8 [place] nephrostomy tube Anesthesia: local Surgeon: JOSE ALBERTO LANDRY Estimated blood loss: minimal Pathology: none Condition: stable - Disposition Condition at discharge: Good Disposition: 01 HOME / SELF CARE / HOMELESS Short Stay Discharge Plan Activity: advance as tolerated Weight Bearing Status: Weight Bear as Tolerated Diet: regular Wound: keep clean and dry, per your surgeon's advice Additional Instructions: May return to work on Tuesday Follow up with: JOHN THAYER MD [Primary Care Provider] - 7 Days
--- NOTE | 2021-03-12 14:50 | Operative Report ---
Operative Report Operative Report: Exam: Right ureteral stent removal, right nephrostomy tube placement Date: 03/12/2021 Clinical indication: Patient with a history of bilateral ureteral stent placement that had been retained for 4 years. Attempted endoscopic removal with partial removal of a right stent. Procedure: Following an explanation of the risks, benefits and alternatives; written informed consent was obtained. The patient was brought to the angiographic suite and placed in prone position on the examination table. Initial ultrasound of the patient's back demonstrated moderate right hydronephrosis. I the patient's back and flank were prepped and draped in the usual sterile fashion. 1% lidocaine was used for anesthesia. Under ultrasound guidance, a posterior middle calyx was cannulated using a 21- gauge 15 cm needle. A 0.018 mandril wire was advanced into the proximal ureter. The needle was removed and the inner portion of an AccuStick transition dilator advanced into the kidney. Contrast was injected which demonstrated appropriate positioning. The AccuStick was removed and reassembled and then reinserted. Th e 0.018 guidewire was exchanged for a 0.035 guidewire and the AccuStick transition dilator following serial dilation was exchanged for an 8 [place] sheath. Initially, attempts to treat of the snare were performed using a variety of techniques including gooseneck snare, and snare, and reverse loop technique. Given the degree of adherence of the tip of the stent to the ureteral wall this was ultimately unsuccessful. The guidewire was inserted and the retrieval loop catheters and 8 [place] sheath were removed. Under fluoroscopic guidance an 8 [place] nephrostomy tube was advanced over the guidewire to position the pigtail within the renal pelvis. Gentle injection of contrast demonstrated appropriate positioning of. The catheter was securely fastened to the skin surface using 2- 0 Ethilon suture and then capped given the indwelling ureteral stent. A sterile dressing was applied. The patient tolerated the procedure well. There were no immediate postprocedure complications. Conscious sedation was performed under the guidance of radiologic nursing. Continuous cardiopulmonary monitoring is utilized. Impression: 1) Attempted right ureteral stent removal unsuccessful using snare and reverse loop techniques. The patient will need to return in 1 week for removal of her retained ureteral stent fragment using endoscopic forceps. 2) Placement of an 8 [place] nephrostomy tube. Initially, this will be capped off however, if the patient experiences persistent urinary retention, the catheter may be drained externally to allow urine to decompress the kidney.
[2021-03-12] MEDS ORDERED: oxyCODONE /ACETAMINOPHEN 5-325MG TAB ONE (15:03)
[2021-03-12 16:06] VITALS: BP 144/70
== END 2021-03-12 10:39 | disposition home or self-care (01) ==
LOC: CATHLABREC 10:38
PROVIDERS: ATTEND Radiology Diagnostic Radiology
DX: N20.0 Calculus of kidney (principal); R65.10 Systemic inflammatory response syndrome (SIRS) of non-infectious origin without acute organ dysfunction; N39.0 Urinary tract infection, site not specified; E66.9 Obesity, unspecified; Z79.899 Other long term (current) drug therapy; Z98.890 Other specified postprocedural states; Z91.040 Latex allergy status; Z68.26 Body mass index [BMI] 26.0-26.9, adult
CPT/HCPCS: 36415; 50386; 50432; 80048; 85027; 85610; 85730; C1729; C1751; C1769; C1773; C1887; C1894; J1956; J2250; J3010; J7040; Q9967

== ENCOUNTER 2021-03-19 08:27 | Day surgery (SDC) | payer BC ==
[2021-03-19 09:33] LABS: Hematocrit 23.6 % (30.3-42.9); Hemoglobin 7.4 gm/dl (10.1-14.3); Mean Corpuscular HGB Conc 32 % (30-34); Mean Corpuscular Volume 74 fl (79-97); Platelet Count 533 K/mm3 (140-440); Red Blood Count 3.19 M/mm3 (3.65-5.03); Red Cell Distribution Width 18.9 % (13.2-15.2)
[2021-03-19] MEDS ORDERED: ONDANSETRON 4 MG/2 ML INJ ONE (09:40)
[2021-03-19 09:55] LABS: Calcium 9.7 mg/dL (8.4-10.2)
[2021-03-19] MEDS ORDERED: LIDOCAINE 1%/EPINEPHRINE 1:100,000 VIAL (20 ML) INFILTRATI ONE (09:58)
[2021-03-19] MEDS ORDERED: SODIUM CHLORIDE IRRI 500 ML 500 ML IR ONE (09:58)
[2021-03-19] MEDS ORDERED: oxyCODONE /ACETAMINOPHEN 5-325MG TAB PO ONE (10:00)
[2021-03-19] MEDS ORDERED: SODIUM CHLORIDE 0.9% 500 ML 500 ML IV SCH (10:00)
[2021-03-19] MEDS ORDERED: ONDANSETRON 4 MG/2 ML INJ IV SCH (10:00)
[2021-03-19] MEDS: MIDAZOLAM 2 MG/2 ML INJ ONE ×2 (10:23→10:58)
[2021-03-19] MEDS: fentaNYL 100 MCG/2 ML INJ ONE ×2 (10:23→10:58)
[2021-03-19 10:43] LABS: INR 0.95 (0.87-1.13)
[2021-03-19 10:49] LABS: Partial Thromboplastin Time 25.7 Sec. (24.2-36.6)
--- NOTE | 2021-03-19 11:18 | Short Stay Summary ---
Short Stay Documentation Date of service: 03/19/21 - History Principal diagnosis: Retained right ureteral stent Past Medical History: other (Nephrolithiasis) Past Surgical History: Other (Prior ureter ureteral stent placement 4 years ago with partial removal of the right ureteral stent) Social history: no significant social history - Allergies and Medications Current Medications: Allergies latex Allergy (Verified 02/20/21 17:20) Swelling Home Medications Medication Instructions Recorded Confirmed Last Taken Type Ondansetron HCl [Zofran] 4 mg PO PRN PRN 01/26/21 03/19/21 03/18/21 History 4 mg Mv-Mn/Folic Acid/Vit [id number] 1 tab PO DAILY 02/20/21 03/19/21 03/17/21 History [Alive Once Daily Women 50 Plus] 1 tab oxyCODONE /ACETAMINOPHEN [Percocet 1 tab PO Q6HR PRN #30 tablet 03/12/21 03/19/21 03/19/21 03:00 Rx 5/325] 1 tab Active Medications Sodium Chloride (Nacl 0.9% 500 Ml) 500 mls @ 50 mls/hr IV DIRECT TONA Last Admin: 03/19/21 09:56 Dose: 50 mls/hr Documented by: Ondansetron HCl (Ondansetron 4 Mg/2 Ml Inj) 4 mg IV ONCE TONA Stop: 03/19/21 17:00 Last Admin: 03/19/21 09:43 Dose: 4 mg Documented by: - Physical exam General appearance: no acute distress Integumentary: no rash HEENT: Atraumatic Lungs: Normal air movement Breasts: deferred Gastrointestinal: normal Female Genitourinary: normal Rectal Exam: deferred Extremities: Full ROM Neurological: Normal gait, Normal speech - Brief post op/procedure progress note Date of procedure: 03/19/21 Pre-op diagnosis: Nephrolithiasis with retained fragment of the right ureteral stent Post-op diagnosis: same Procedure: Attempted removal, stent adherent to ureteral wall distally Anesthesia: local Surgeon: JOSE ALBERTO LANDRY Estimated blood loss: none Pathology: none Condition: stable - Disposition Condition at discharge: Good Disposition: 01 HOME / SELF CARE / HOMELESS Short Stay Discharge Plan Activity: advance as tolerated Diet: regular Wound: keep clean and dry, per your surgeon's advice Follow up with: JOHN THAYER MD [Primary Care Provider] - 7 Days
--- NOTE | 2021-03-19 11:23 | Operative Report ---
Operative Report Operative Report: Exam: Nephrostogram through indwelling nephrostomy tube, attempted removal of retained ureteral stent placement, placement of new nephrostomy tube Clinical indication: Patient with a history of nephrolithiasis with the bilateral ureteral stents placed 4 years ago. Attempted endoscopic removal and prior antegrade removal. Endoscopic removal resulted in the inferior aspect of the retained ureteral stent being freed. Date: 03/19/2021 Procedure: Following an explanation of the risks, benefits and alternatives; written informed consent was obtained. The patient was brought to the angiographic suite and placed in prone position on the examination table. The patient's right flank and indwelling nephrostomy tube were prepped and draped in the usual sterile fashion. 1% lidocaine was used for anesthesia. Contrast was gently injected through the indwelling nephrostomy tube which demonstrated appropriate positioning. The 0.035 guidewire was advanced to the nephrostomy tube and laced in the proximal ureter. The nephrostomy tube was removed and an 8 Samoan sheath placed over the guidewire under fluoroscopy centrally. The guidewire and trocar were removed following placement of 8 Samoan sheath just proximal to the proximal loop of the retained ureteral stent. Bronchial forceps were then advanced through the sheath and opened just distal to the end of the sheath and attempts were made to snare the proximal loop without success. A vertebral catheter and 0.035 guidewire was then advanced t hrough the sheath and the vertebral catheter angled to position the tip of the vertebral catheter just proximal to the retained ureteral stent. A loop snare was then advanced through the vertebral catheter and the proximal end of the ureteral stent snared. The stent was then withdrawn proximally however, the mid and distal portions of the ureteral stent remained retained and adherent to the ureteral wall. At this point, decision was made to terminate the procedure. A 0.035 guidewire was then advanced through the vertebral catheter and the vertebral catheter and sheath removed. An 8 Samoan nephrostomy tube was then advanced over the guidewire and the guidewire and trocar removed. The pigtail was coiled within the renal pelvis. The catheter was securely fastened to the skin surface using 2-0 Ethilon suture and then placed to dependent drainage. The patient tolerated the procedure well. There were no immediate postprocedure complications. Conscious sedation was performed under the guidance of radiologic nursing. Continuous cardiopulmonary monitoring was utilized. Impression: 1) Nephrostogram through indwelling nephrostomy tube demonstrating appropriate positioning of nephrostomy tube, mild hydronephrosis, and retained ureteral stent fragment as well as new ureteral stent. 2) Attempted removal of ureteral stent with bronchial forceps and loop snare which resulted in the stent being stretched proximally however, the mid and distal portions of the ureteral stent are adherent to the ureteral wall. 3) Placement of new 8 Samoan nephrostomy tube. 4) The patient will need to return to her urologist for possible laser removal of indwelling ureteral stent.
[2021-03-19 13:20] VITALS: BP 130/60
[2021-03-19 15:51] LABS: Basophils # (Auto) 0.2 K/mm3 (0.0-0.1); Eosinophils # (Auto) 0.5 K/mm3 (0.0-0.4); Eosinophils % (Auto) 6.2 % (0.0-4.3); Monocytes # (Auto) 0.5 K/mm3 (0.0-0.8)
[2021-03-19 16:13] LABS: Basophils % (Auto) 1.9 % (0.0-1.8); Lymphocytes # (Auto) 3.1 K/mm3 (1.2-5.4); Lymphocytes % (Auto) 37.5 % (13.4-35.0)
== END 2021-03-19 14:10 | disposition home or self-care (01) ==
LOC: CATHLABREC 08:27
PROVIDERS: ATTEND Radiology Diagnostic Radiology
DX: N20.0 Calculus of kidney (principal); N39.0 Urinary tract infection, site not specified; E66.9 Obesity, unspecified; R65.10 Systemic inflammatory response syndrome (SIRS) of non-infectious origin without acute organ dysfunction; Z79.82 Long term (current) use of aspirin; Z79.899 Other long term (current) drug therapy; Z91.040 Latex allergy status; Z88.8 Allergy status to other drugs, medicaments and biological substances
CPT/HCPCS: 36415; 50386; 50432; 80048; 85007; 85025; 85610; 85730; 96374; C1729; C1769; C1773; C1894; J1956; J2250; J2405; J3010; J7040; 50435; Q9967

== ENCOUNTER 2021-05-04 06:05 | Day surgery (SDC) | payer BC ==
[~2021-05-04 06:05] MED LIST changes: -LACTATED RINGERS 1,000 ML IV SCH; -MIDAZOLAM 2 MG/2 ML INJ IV NR; +WATER FOR IRRIG STERILE 1,500 ML BOTTLE IR ONE
[2021-05-04] MEDS ORDERED: LACTATED RINGERS 1,000 ML ONE (06:35)
[2021-05-04] MEDS ORDERED: HYDROmorphone 1 MG/1 ML INJ IV PRN ×2 (07:22)
[2021-05-04] MEDS ORDERED: ONDANSETRON 4 MG/2 ML INJ IV PRN (07:22)
--- NOTE | 2021-05-04 07:24 | Anesthesia Day of Surgery ---
Anesthesia Day of Surgery - Day of Surgery Patient Examined: Yes Patient H&P Reviewed: Yes Patient is NPO: Yes
--- NOTE | 2021-05-04 07:25 | Anesthesia Consultation ---
Anesthesia Consult and Med Hx Date of service: 05/04/21 - Airway Anesthetic Teeth Evaluation: Good ROM Head & Neck: Adequate Mental/Hyoid Distance: Adequate Mallampati Class: Class I Intubation Access Assessment: Good - Pre-Operative Health Status ASA Pre-Surgery Classification: ASA1 Proposed Anesthetic Plan: General - Pulmonary Hx Smoking: No Hx Respiratory Symptoms: No Hx Sleep Apnea: No (MARY PRE SCREEN LOW RISK- SNORES) - Cardiovascular System Hx Hypertension: No Hx Heart Attack/AMI: No Hx Cardia Arrhythmia: Yes (remote hx irregular heartbeat; no recent symptoms, no meds) Hx Pacemaker: No Hx Internal Defibrillator: No Hx Heart Murmur: Yes (CAUSES NO PROBLEMS) - Central Nervous System Hx Seizures: No CVA: No Hx Back Pain: Yes (FROM STONES) Hx Psychiatric Problems: No - Gastrointestinal Hx Gastroesophageal Reflux Disease: No - Endocrine Hx Renal Disease: No Hx Liver Disease: No Hx Insulin Dependent Diabetes: No Hx Non-Insulin Dependent Diabetes: No Hx Thyroid Disease: No - Hematic Hx Anemia: Yes (no recent transfusions) Hx Sickle Cell Disease: No - Other Systems Hx Alcohol Use: Yes (rare) Hx Substance Use: No Hx Cancer: No - Additional Comments Anesthesia Medical History Comments: Here numerous times. Last
[2021-05-04] MEDS ORDERED: LACTATED RINGERS 1,000 ML IV SCH (07:30)
[2021-05-04] MEDS ORDERED: ONDANSETRON 4 MG/2 ML INJ ONE (07:37)
[2021-05-04] MEDS ORDERED: LIDOCAINE MPF (2%) 20 MG/1 ML VIAL 5 ML ONE (07:37)
[2021-05-04] MEDS ORDERED: fentaNYL 100 MCG/2 ML INJ ONE (07:38)
[2021-05-04] MEDS ORDERED: propofoL 200 MG/20 ML VIAL IV ONE (07:38)
[2021-05-04] MEDS ORDERED: KETOROLAC 30 MG/1 ML INJ ONE (07:39)
[2021-05-04] MEDS ORDERED: dexAMETHasone 20 MG/5 ML VIAL ONE (07:39)
[2021-05-04] MEDS ORDERED: GENTAMICIN/NS 80 MG/100 ML 100 ML IV SCH (08:00)
[2021-05-04] MEDS ORDERED: MIDAZOLAM 2 MG/2 ML INJ IV NR (08:00)
[2021-05-04] MEDS ORDERED: WATER FOR IRRIG STERILE 2000 ML IR ONE (08:50)
[2021-05-04] MEDS ORDERED: IOHEXOL 300 MG/ML 50ML IV ONE (08:50)
[2021-05-04] MEDS ORDERED: WATER FOR IRRIG STERILE 1,500 ML BOTTLE IR ONE (08:50)
[2021-05-04] MEDS ORDERED: GENTAMICIN 160 MG in SODIUM CHLORIDE 0.9% 100 ML IV NR (09:00)
[2021-05-04] MEDS ORDERED: MINERAL OIL Light (Sterile) 10 ML VIAL TP ONE ×2 (09:51→09:53)
--- NOTE | 2021-05-04 10:18 | Short Stay Summary ---
Short Stay Documentation Date of service: 05/04/21 - History Principal diagnosis: Retained right ureteral stent, nephro ureterolithiasis Past Medical History: other (Bilateral hydronephrosis, bilateral nephrolithiasis) Past Surgical History: Other (Bilateral ureteral stent placement 4 years ago) Social history: no significant social history - Allergies and Medications Current Medications: Allergies latex Allergy (Verified 02/20/21 17:20) Swelling Home Medications Medication Instructions Recorded Confirmed Last Taken Type Ondansetron HCl [Zofran] 4 mg PO PRN PRN 01/26/21 04/22/21 03/18/21 History 4 mg Mv-Mn/Folic Acid/Vit [id number] 1 tab PO DAILY 02/20/21 04/22/21 03/17/21 History [Alive Once Daily Women 50 Plus] 1 tab oxyCODONE /ACETAMINOPHEN [Percocet 1 tab PO Q6HR PRN #30 tablet 03/12/21 04/22/21 03/19/21 03:00 Rx 5/325] 1 tab Ibuprofen 800 mg PO DAILY 04/22/21 04/22/21 Unknown History oxyCODONE /ACETAMINOPHEN [Percocet 1 tab PO Q4HR PRN #30 tab 05/04/21 Unknown Rx 5/325] Active Medications Hydromorphone HCl (Hydromorphone 1 Mg/1 Ml Inj) 0.25 mg IV Q10MIN PRN PRN Reason: Pain, Moderate (4-6) Stop: 05/04/21 20:00 Hydromorphone HCl (Hydromorphone 1 Mg/1 Ml Inj) 0.5 mg IV Q10MIN PRN PRN Reason: Pain , Severe (7-10) Stop: 05/04/21 20:00 Lactated Ringer's (Lactated Ringers) 1,000 mls @ 125 mls/hr IV DIRECT TONA Last Admin: 05/04/21 06:45 Dose: 125 mls/hr Documented by: Cefazolin Sodium 2 gm/ Sodium (Chloride) 100 mls @ 200 mls/hr IV ONCE@0830 NR; Protocol Stop: 05/04/21 12:00 Gentamicin Sulfate 160 mg/ (Sodium Chloride) 104 mls @ 200 mls/hr IV PREOP NR Stop: 05/04/21 12:00 Midazolam HCl (Midazolam 2 Mg/2 Ml Inj) 2 mg IV PREOP NR Stop: 05/04/21 23:59 Last Admin: 05/04/21 07:30 Dose: 2 mg Documented by: Ondansetron HCl (Ondansetron 4 Mg/2 Ml Inj) 4 mg IV ONCE PRN PRN Reason: Nausea And Vomiting Stop: 05/04/21 18:00 - Physical exam General appearance: no acute distress Integumentary: no rash, no growths HEENT: Atraumatic Lungs: Normal air movement Breasts: deferred Heart: Regular rate Gastrointestinal: normal Female Genitourinary: deferred Rectal Exam: deferred Neurological: Normal speech, Normal tone - Brief post op/procedure progress note Date of procedure: 05/04/21 Pre-op diagnosis: Retained right ureteral stent, ureteral lithiasis Post-op diagnosis: same Procedure: Fluoroscopic guided evaluation of indwelling nephrostomy tube, removal of nephrostomy tube under fluoroscopy, placement of 20 Nepalese nephrostomy tube Urology will dictate urologic portion of exam Anesthesia: GETA Surgeon: HAN WHITAKER Registered Dental Assistant Rda: JOSE ALBERTO LANDRY Estimated blood loss: minimal Pathology: none Condition: stable - Disposition Condition at discharge: Good Disposition: 01 HOME / SELF CARE / HOMELESS Short Stay Discharge Plan Activity: advance as tolerated Weight Bearing Status: Weight Bear as Tolerated Diet: regular Wound: keep clean and dry, per your surgeon's advice Follow up with: JOHN THAYER MD [Primary Care Provider] - 7 Days HAN WHITAKER MD [Staff Physician] - 7 Days Prescriptions: oxyCODONE /ACETAMINOPHEN [Percocet 5/325] 1 tab PO Q4HR PRN #30 tab PRN Reason: Pain , Severe (7-10)
--- NOTE | 2021-05-04 10:22 | Operative Report ---
Operative Report Operative Report: Exam: Nephrostomy tube evaluation, removal and replacement, urologic portion of procedure will be dictated separately Clinical indication: Patient with a history of retained bilateral ureteral stents for 4 years with encrustation of the middle portion of the stent Date: 05/04/2021 Procedure: Following an explanation of the risk, benefits and alternatives; written informed consent was obtained. The patient was brought to the cystoscopy suite and placed in a lithotomy position with a right oblique posit ioning to allow access to both the indwelling right nephrostomy tube and cystoscopy. Following the induction of general anesthesia the procedure was begun. The urologic portion of the procedure will be dictated by urology Under fluoroscopic guidance, initial evaluation of the nephrostomy tube demonstrated appropriate positioning within the renal pelvis. The suture and catheter were cut to release the pigtail and a 0.035 guidewire was then advanced through the nephrostomy tube. The guidewire was advanced to the bladder. The indwelling nephrostomy tube was removed and initially a 7 Welsh sheath placed to dilate the tract followed by a 10 Welsh sheath. At this point, the urologic portion of the examination was performed. Given the severe encrustation of the middle portion of the ureter, decision was made to dilate the nephrostomy tube tract to [address] a 20 Welsh port lions drain as the nephrostomy tube. This was performed under fluoroscopy. Following placement of the drain, the drain was securely fastened to the skin surface using 2-0 silk suture and placed to dependent drainage. Contrast was injected through the tube to document appropriate positioning within the renal pelvis. Impression: 1) Fluoroscopic guided evaluation of indwelling nephrostomy tube. 2) Fluoroscopic guided removal of indwelling nephrostomy tube with serial tract dilation and placement of a 20 Welsh port lions drain as the nephrostomy tube to allow further access for antegrade laser and possible removal of the ureteral stent from an antegrade approach.
[2021-05-04] MEDS ORDERED: MEPERIDINE 25 MG/1 ML INJ ONE (10:52)
[2021-05-04] MEDS ORDERED: MEPERIDINE 25 MG/1 ML INJ IV PRN (10:53)
--- NOTE | 2021-05-04 12:45 | Post Operative Note ---
Date of procedure: 05/04/21 Pre-op diagnosis: retained Post-op diagnosis: same Findings: 4 yr old retained stents Procedure: laser inserrtion large NT Anesthesia: GETA Surgeon: HAN WHITAKER Barkeeper: JOSE ALBERTO LANDRY Estimated blood loss: none Pathology: none Condition: stable Disposition: PACU
--- NOTE | 2021-05-04 12:46 | Discharge Summary ---
Short Stay Discharge Plan Activity: other (no straining ) Weight Bearing Status: Non-Weight Bearing Diet: low fat, low cholesterol, low salt Wound: change dressing Follow up with: HAN WHITAKER MD [Staff Physician] - 7 Days JOHN THAYER MD [Primary Care Provider] - 7 Days Prescriptions: oxyCODONE /ACETAMINOPHEN [Percocet 5/325] 1 tab PO Q4HR PRN #30 tab PRN Reason: Pain , Severe (7-10)
[2021-05-04] MEDS ORDERED: NEOMY 3.5 MG/BACIT 400 UNITS/POLY B 5000 UNITS/GM OINT PACKET TP ONE (12:55)
[2021-05-04] MEDS: NEOMY 3.5 MG/BACIT 400 UNITS/POLY B 5000 UNITS/GM OINT PACKET TP SCH ×2 (13:02→14:00)
--- NOTE | 2021-05-04 13:31 | Operative Report ---
DATE OF SURGERY: 05/04/2021 PREOPERATIVE DIAGNOSES: Retained stents for 4 years. POSTOPERATIVE DIAGNOSIS: Retained stents for 4 years. PROCEDURES: Cystoscopy, right ureteroscopy with reinsertion of stent. Retrograde injection of the contrast and antegrade injection of contrast, nephrostomy tube, tract dilatation and insertion of a 20 Councill catheter. SURGEON: Dr. Sharma and Dr. Vidal. ANESTHESIA: General. FINDINGS: This is a woman with a 4-year retained stent. We have tried our best to get the stent out. We have lasered it along the stent. There was a weakening in part of the stent, so it broke where the lots of the stone was adherent in the mid ureter. She now presents for multiple staged procedure. DESCRIPTION OF PROCEDURE: The patient was brought to the operating room and placed on the operating table. Following induction of anesthesia, placed with the right flank up and prepped and draped in usual sterile fashion. At this point, we were able to withdraw the bigger stent, placed a wire in the kidney. Dr. Vidal was able to get a wire down to the bladder. We had through and through access. We tried balloon dilatation and dilation, but in the mid ureter, there was so much stone. Using the flexible and rigid ureteroscope, we were able to laser approximately 2-3 cm of stone. It was difficult to grab the stent, so the plan was then to dilate the tract and placed a bigger nephrostomy tube, which we did. We dilated to 26-Afghan and placed a 20 Councill catheter. The patient tolerated the procedure well. No significant complications. The plan will be followed up from above. If that is not successful, she will need a Tertiary center to deal with both sides. Hopefully, she will not have to have a transplant nephrectomies, but this is a very difficult problem, stones up and down the ureter from the stent and I think we can try from above and see if that stent is manageable. TID: [id number] RECEIPT: [id number] VICENTE/PORTILLO/ROMEL
--- NOTE | 2021-05-04 16:08 | Fluoroscopy Report ---
7 fluoroscopic images submitted Indication: Intraoperative localization Impression: 7 images of the abdomen were submitted for documentation purposes with radiology involve jennifer. Patient reportedly underwent laser removal of a right ureteral stone with stent exchange and b alloon dilatation. Approximately 25 mL of Omnipaque 300 was utilized for this exam. Please refer to the operative note for complete details. Fluoroscopic time: 7 minutes and 2 seconds Signer Name: Chidi Finnegan MD Signed: 05/04/2021 4:04 PM Workstation Name: [email or web address]
[2021-05-04 17:29] VITALS: BP 121/60
== END 2021-05-04 14:15 | disposition home or self-care (01) ==
LOC: OR 06:05
PROVIDERS: ATTEND Urology
DX: N20.0 Calculus of kidney (principal); T83.192A Other mechanical complication of indwelling ureteral stent, initial encounter; Z20.822 Contact with and (suspected) exposure to COVID-19; D64.9 Anemia, unspecified; Z79.899 Other long term (current) drug therapy; Z91.040 Latex allergy status; Z98.890 Other specified postprocedural states; Y83.8 Other surgical procedures as the cause of abnormal reaction of the patient, or of later complication, without mention of misadventure at the time of the procedure
CPT/HCPCS: 50431; 52353; 74485; 81025; A4217; A6250; C1726; C1758; C1769; C2617; J0690; J1100; J1580; J1885; J2175; J2250; J2405; J2704; J3010; J7120; Q9967; U0003

== ENCOUNTER 2021-05-13 09:42 | Day surgery (SDC) | payer BC ==
[~2021-05-13 09:42] MED LIST changes: +.SODIUM CHLORIDE 0.9% IRRIG SOLN 3000 ML IR ONE; +ACETAMINOPHEN 500 MG TAB PO SCH; -IOHEXOL 300 MG/ML 50ML IV ONE; +LACTATED RINGERS 1,000 ML IV SCH; +MIDAZOLAM 2 MG/2 ML INJ IV NR; +MINERAL OIL Light (Sterile) 10 ML VIAL TP ONE; +SCOPOLAMINE TRANSDERMAL PATCH 72 HR TD NR; +SODIUM CHLORIDE 0.9% 500 ML 500 ML IV SCH; -WATER FOR IRRIG STERILE 1,500 ML BOTTLE IR ONE; -WATER FOR IRRIG STERILE 2000 ML IR ONE
[2021-05-13 10:41] LABS: Hematocrit 28.1 % (30.3-42.9); Hemoglobin 8.7 gm/dl (10.1-14.3); Mean Corpuscular HGB Conc 31 % (30-34); Mean Corpuscular Volume 76 fl (79-97); Platelet Count 568 K/mm3 (140-440); Red Blood Count 3.71 M/mm3 (3.65-5.03); Red Cell Distribution Width 19.4 % (13.2-15.2)
[2021-05-13] MEDS ORDERED: ONDANSETRON 4 MG/2 ML INJ IV PRN (10:45)
--- NOTE | 2021-05-13 10:45 | Anesthesia Consultation ---
Anesthesia Consult and Med Hx Date of service: 05/13/21 - Airway Anesthetic Teeth Evaluation: Good ROM Head & Neck: Adequate Mental/Hyoid Distance: Adequate Mallampati Class: Class II Intubation Access Assessment: Probably Good - Pre-Operative Health Status ASA Pre-Surgery Classification: ASA1 Proposed Anesthetic Plan: General - Pulmonary Hx Smoking: No Hx Respiratory Symptoms: No Hx Sleep Apnea: No (MARY PRE SCREEN LOW RISK- SNORES) - Cardiovascular System Hx Hypertension: No Hx Heart Attack/AMI: No - Central Nervous System CVA: No Hx Back Pain: Yes (FROM STONES) Hx Psychiatric Problems: No - Gastrointestinal Hx Gastroesophageal Reflux Disease: No - Endocrine Hx Renal Disease: No Hx Liver Disease: No Hx Insulin Dependent Diabetes: No Hx Non-Insulin Dependent Diabetes: No Hx Thyroid Disease: No - Hematic Hx Anemia: Yes - Other Systems Hx Obesity: No - Additional Comments Anesthesia Medical History Comments: No hx anesthetic complications.
--- NOTE | 2021-05-13 10:45 | Anesthesia Day of Surgery ---
Anesthesia Day of Surgery - Day of Surgery Patient Examined: Yes Patient H&P Reviewed: Yes Patient is NPO: Yes
[2021-05-13 10:54] LABS: BUN/Creatinine Ratio 11; Blood Urea Nitrogen 13 mg/dL (7-17); Calcium 9.7 mg/dL (8.4-10.2); Hemolysis Index 7
[2021-05-13] MEDS ORDERED: propofoL 200 MG/20 ML VIAL IV ONE (11:44)
[2021-05-13] MEDS ORDERED: HYDROmorphone 1 MG/1 ML INJ ONE (11:44)
[2021-05-13] MEDS ORDERED: ROCURONIUM 50 MG/5 ML INJ IV ONE (11:45)
[2021-05-13] MEDS ORDERED: LIDOCAINE MPF (2%) 20 MG/1 ML VIAL 5 ML ONE (11:45)
[2021-05-13] MEDS ORDERED: ceFAZolin/STERILE WATER 2 GM/20 ML SYRINGE IV NR (12:09)
[2021-05-13] MEDS ORDERED: dexAMETHasone 20 MG/5 ML VIAL ONE (12:48)
[2021-05-13] MEDS ORDERED: ONDANSETRON 4 MG/2 ML INJ ONE (12:49)
[2021-05-13] MEDS ORDERED: PHENYLEPHRINE/NS 1,000 MCG/10 ML SYRINGE (OR USE) IV ONE (13:01)
[2021-05-13] MEDS ORDERED: .SODIUM CHLORIDE 0.9% IRRIG SOLN 3000 ML IR ONE (13:03)
[2021-05-13] MEDS ORDERED: MINERAL OIL Light (Sterile) 10 ML VIAL TP ONE (13:20)
[2021-05-13] MEDS ORDERED: KETOROLAC 30 MG/1 ML INJ ONE (14:59)
[2021-05-13] MEDS ORDERED: NEOSTIGMINE 10MG/10 ML INJ MDV ONE (15:00)
[2021-05-13] MEDS ORDERED: GLYCOPYRROLATE 0.4 MG/2 ML INJ ONE (15:00)
[2021-05-13] MEDS: HYDROmorphone 1 MG/1 ML INJ IV PRN ×2 (15:28→15:50)
--- NOTE | 2021-05-13 15:29 | Post Operative Note ---
Date of procedure: 05/13/21 Pre-op diagnosis: retained stent Post-op diagnosis: same Findings: retained stent Procedure: perc nephrolithotomy Anesthesia: GETA Surgeon: HAN WHITAKER Estimated blood loss: none Pathology: none Specimen disposition: to lab (stent) Condition: stable Disposition: PACU
--- NOTE | 2021-05-13 15:30 | Discharge Summary ---
Short Stay Discharge Plan Activity: other (no straining ) Weight Bearing Status: Full Weight Bearing Diet: low fat, low cholesterol, low salt Special Instructions: other Durable Medical Equipment Needed Upon Discharge: other (stent perc tube) Follow up with: JOHN THAYER MD [Primary Care Provider] - 7 Days
[2021-05-13 16:23] VITALS: BP 156/63
--- NOTE | 2021-05-13 16:38 | Operative Report ---
DATE OF SURGERY: 05/13/2021 PREOPERATIVE DIAGNOSES: Four-year retained bilateral stents, chronic renal insufficiency, hydronephrosis. POSTOPERATIVE DIAGNOSES: Four-year retained bilateral stents, chronic renal insufficiency, hydronephrosis. PROCEDURE: Right percutaneous nephrolithotomy with laser of large number of stones, reinsertion of double-J stent and nephrostomy tube. SURGEON: Dr. Sharma. ANESTHESIA: General. FINDINGS: This is a woman with a retained stent. We tried have interventional to get it removed. We tried from below; and now, we will try from above. All the risks and implications discussed. She is aware of everything. DESCRIPTION OF PROCEDURE: The patient was brought to the operating room and placed on the operating table. Following induction of anesthesia, placed in the prone position. Ferrera catheter was draining. Prepped and draped in usual sterile fashion. Percutaneous nephroscopy was done and the stent was eventually withdrawn from the tract. A wire coiled in the bladder. The tract was dilated to 26-Estonian and a 24-sheath was placed at this point, lasering the stent and large number of stones. By the time, we retrieved part of the stent, it was still about 3 inch piece left inside. We had to go back with the laser multiple times. Eventually, we withdrew all the stent. The patient tolerated the procedure well. A double J-coiled in the bladder and kidney, which was 7-Estonian 26 and a nephrostomy tube was replaced. The patient tolerated the procedure well. This was secured with silk, brought to recovery in stable condition. No significant bleeding. TID: [id number] RECEIPT: [id number] VICENTE/PORTILLO/TWAN
--- NOTE | 2021-05-13 16:43 | Fluoroscopy Report ---
INTRAOPERATIVE FLUOROSCOPY: ABDOMEN INDICATION / CLINICAL INFORMATION: CALCULUS OF RT KIDNEY, ENCRUSTED STENT. TECHNIQUE: Intraoperative spot images were obtained during the procedure. FINDINGS: Patient is status post percutaneous nephrolithotomy with right stent exchange. Fluoroscopy Time: Less than 0.1 minute. Fluoroscopy Images: 1. Signer Name: Bari Steinberg DO Signed: 05/13/2021 4:38 PM Workstation Name: [employer]
--- NOTE | 2021-05-13 16:47 | Fluoroscopy Report ---
INTRAOPERATIVE FLUOROSCOPY INDICATION / CLINICAL INFORMATION: RT KIDNEY STONE. TECHNIQUE: Intraoperative spot images were obtained during the procedure. FINDINGS: Intraoperative fluoroscopy images for Percutaneous Nephrolithotomy w/ laser and Stent Exchange. See operative/procedure note by performing physician for full details. Fluoroscopy Time: 2.1 minutes. Fluoroscopy Images: 9. Signer Name: Ervin Hilton MD Signed: 05/13/2021 4:43 PM Workstation Name: [email or web address]
== END 2021-05-13 17:25 | disposition home or self-care (01) ==
LOC: OR 09:42
PROVIDERS: ATTEND Urology
DX: N13.2 Hydronephrosis with renal and ureteral calculous obstruction (principal); N18.9 Chronic kidney disease, unspecified; Z46.6 Encounter for fitting and adjustment of urinary device; Z79.899 Other long term (current) drug therapy; Z91.040 Latex allergy status; Z98.890 Other specified postprocedural states
CPT/HCPCS: 36415; 50081; 50431; 74485; 80048; 81025; 85027; 86850; 86900; 86901; 86920; 88300; A4217; C1726; C1769; C2617; J0690; J1100; J1170; J1885; J2250; J2370; J2405; J2704; J2710; J7040; J7120; Q9967; 88302

== ENCOUNTER 2021-07-02 06:57 | Day surgery (SDC) | payer BC ==
[2021-06-30 10:35] LABS: Hematocrit 28.8 % (30.3-42.9); Hemoglobin 8.8 gm/dl (10.1-14.3); Mean Corpuscular HGB Conc 30 % (30-34); Mean Corpuscular Volume 75 fl (79-97); Platelet Count 460 K/mm3 (140-440); Red Blood Count 3.85 M/mm3 (3.65-5.03); Red Cell Distribution Width 17.6 % (13.2-15.2)
[2021-06-30 10:56] LABS: BUN/Creatinine Ratio 12; Blood Urea Nitrogen 14 mg/dL (7-17); Calcium 9.1 mg/dL (8.4-10.2); Hemolysis Index 0
[2021-07-02] MEDS ORDERED: propofoL 200 MG/20 ML VIAL IV ONE (07:27)
[2021-07-02] MEDS ORDERED: fentaNYL 100 MCG/2 ML INJ ONE (07:27)
[2021-07-02] MEDS ORDERED: LIDOCAINE MPF (2%) 20 MG/1 ML VIAL 5 ML ONE (07:27)
[2021-07-02] MEDS ORDERED: ONDANSETRON 4 MG/2 ML INJ ONE (07:27)
[2021-07-02] MEDS ORDERED: dexAMETHasone 20 MG/5 ML VIAL ONE (07:27)
--- NOTE | 2021-07-02 07:37 | Anesthesia Day of Surgery ---
Anesthesia Day of Surgery - Day of Surgery Patient Examined: Yes Patient H&P Reviewed: Yes Patient is NPO: Yes
[2021-07-02] MEDS ORDERED: ONDANSETRON 4 MG/2 ML INJ IV PRN (07:40)
[2021-07-02] MEDS ORDERED: HYDROmorphone 1 MG/1 ML INJ IV PRN ×2 (07:40)
--- NOTE | 2021-07-02 07:40 | Anesthesia Consultation ---
Anesthesia Consult and Med Hx Date of service: 07/02/21 - Airway Anesthetic Teeth Evaluation: Good ROM Head & Neck: Adequate Mental/Hyoid Distance: Adequate Mallampati Class: Class I Intubation Access Assessment: Good - Pre-Operative Health Status ASA Pre-Surgery Classification: ASA2 Proposed Anesthetic Plan: General - Pulmonary Hx Smoking: No Hx Respiratory Symptoms: No Hx Sleep Apnea: No (MARY PRE SCREEN LOW RISK) - Cardiovascular System Hx Hypertension: No Hx Heart Attack/AMI: No Hx Cardia Arrhythmia: Yes (remote hx irregular heartbeat; no recent symptoms, no meds) Hx Pacemaker: No Hx Internal Defibrillator: No Hx Heart Murmur: Yes (CAUSES NO PROBLEMS) - Central Nervous System Hx Seizures: No CVA: No Hx Back Pain: Yes (FROM STONES) Hx Psychiatric Problems: No - Gastrointestinal Hx Gastroesophageal Reflux Disease: No - Endocrine Hx Renal Disease: No Hx Liver Disease: No Hx Insulin Dependent Diabetes: No Hx Non-Insulin Dependent Diabetes: No Hx Thyroid Disease: No - Hematic Hx Anemia: Yes (8.8/28.8) Hx Sickle Cell Disease: No - Other Systems Hx Alcohol Use: Yes (rare) Hx Substance Use: No Hx Cancer: No Hx Obesity: No - Additional Comments Anesthesia Medical History Comments: Was here [id number]
[2021-07-02] MEDS ORDERED: ceFAZolin/Water 2 GM/20 ML 2 GM/20 ML SYRINGE IV ONE (07:48)
[2021-07-02] MEDS: MIDAZOLAM 2 MG/2 ML INJ IV NR (08:20)
[2021-07-02] MEDS ORDERED: ceFAZolin/STERILE WATER 2 GM/20 ML SYRINGE IV NR (09:00)
[2021-07-02] MEDS ORDERED: PHENYLEPHRINE/NS 1,000 MCG/10 ML SYRINGE (OR USE) IV ONE (09:26)
[2021-07-02] MEDS: LACTATED RINGERS 1,000 ML IV SCH (09:30)
--- NOTE | 2021-07-02 09:59 | Short Stay Summary ---
Short Stay Documentation Date of service: 07/02/21 - History H&P: obtained from office - Allergies and Medications Current Medications: Allergies latex Allergy (Verified 02/20/21 17:20) Swelling Home Medications Medication Instructions Recorded Confirmed Last Taken Type Ondansetron HCl [Zofran] 4 mg PO PRN PRN 01/26/21 06/25/21 1 Month Ago History ~04/13/21 Mv-Mn/Folic Acid/Vit [id number] 1 tab PO DAILY 02/20/21 06/25/21 03/17/21 History [Alive Once Daily Women 50 Plus] 1 tab Ibuprofen 800 mg PO DAILY 04/22/21 06/25/21 2 Months Ago History ~03/13/21 oxyCODONE /ACETAMINOPHEN [Percocet 1 tab PO Q4HR PRN #30 tab 05/04/21 06/25/21 1 Month Ago Rx 5/325] ~04/13/21 Active Medications Hydromorphone HCl (Hydromorphone 1 Mg/1 Ml Inj) 0.25 mg IV Q10MIN PRN PRN Reason: Pain, Moderate (4-6) Stop: 07/03/21 07:39 Hydromorphone HCl (Hydromorphone 1 Mg/1 Ml Inj) 0.5 mg IV Q10MIN PRN PRN Reason: Pain , Severe (7-10) Stop: 07/03/21 07:39 Lactated Ringer's (Lactated Ringers) 1,000 mls @ 125 mls/hr IV DIRECT TONA Midazolam HCl (Midazolam 2 Mg/2 Ml Inj) 2 mg IV PREOP NR Stop: 07/02/21 23:59 Ondansetron HCl (Ondansetron 4 Mg/2 Ml Inj) 4 mg IV ONCE PRN PRN Reason: Nausea And Vomiting - Brief post op/procedure progress note Date of procedure: 07/02/21 Pre-op diagnosis: left renal stone Post-op diagnosis: same Procedure: left eswl Anesthesia: GETA Surgeon: AIMEE HART Condition: stable - Hospital course Hospital course: norco & post op info on chart - Disposition Condition at discharge: Stable Disposition: 01 HOME / SELF CARE / HOMELESS Short Stay Discharge Plan Follow up with: JOHN THAYER MD [Primary Care Provider] - 7 Days
--- NOTE | 2021-07-02 10:18 | Operative Report ---
DATE OF SURGERY: 07/02/2021 PREOPERATIVE DIAGNOSIS: Left renal stone, status post retained stent. POSTOPERATIVE DIAGNOSIS: Left renal stone, status post retained stent. PROCEDURE: Left extracorporeal shock wave lithotripsy, staged procedure. SURGEON: Ananda Howard MD ANESTHESIA: General. ESTIMATED BLOOD LOSS: Minimal. FLUIDS: Crystalloid. COMPLICATIONS: No complications. INDICATIONS: This patient is a 40-year-old female under the care of Dr. Sharma for bilateral retained stents with stones. She presents today for left lithotripsy. DESCRIPTION OF PROCEDURE: The patient was taken to the operative suite, placed in the supine position. After adequate general anesthesia, she was placed in a supine position. Her stone was localized in 2 planes using fluoroscopy. She has an indwelling stent with stone burden in the renal pelvis and down the ureter. Extracorporeal shock wave lithotripsy was administered with a maximum kV of 7 and 2500 shocks. 5-minute renal pause after 200 shocks was performed. There was some fragmentation of the stone. She is scheduled for percutaneous nephrolithotomy in the future. She was extubated and taken to recovery room. She will go home on [place] and follow up in the office. TID: [id number] RECEIPT: [id number] SHIRA/TEENA
[2021-07-02 20:03] VITALS: BP 122/64
== END 2021-07-02 06:58 | disposition home or self-care (01) ==
LOC: OR 06:57
PROVIDERS: ATTEND Urology
DX: N20.0 Calculus of kidney (principal); Z20.822 Contact with and (suspected) exposure to COVID-19; Z91.040 Latex allergy status; Z79.899 Other long term (current) drug therapy; Z98.890 Other specified postprocedural states
CPT/HCPCS: 36415; 50590; 80048; 84703; 85027; J0690; J1100; J2250; J2370; J2405; J2704; J3010; J3490; J7120; U0003

== ENCOUNTER 2021-07-03 21:28 | Emergency (ER) | payer BC ==
[2021-07-03 22:00] VITALS: BP 144/74
== END 2021-07-04 00:30 | disposition left against medical advice (07) ==
LOC: ED 21:28
DX: R52 Pain, unspecified (principal); Z53.21 Procedure and treatment not carried out due to patient leaving prior to being seen by health care provider

== ENCOUNTER 2021-08-27 07:22 | Day surgery (SDC) | payer BC ==
--- NOTE | 2021-08-27 08:48 | Cat Scan Report ---
CT ABDOMEN AND PELVIS WITHOUT CONTRAST HISTORY: abdominal pain. COMPARISON: 01/26/2021 TECHNIQUE: Helical CT images of the abdomen and pelvis were obtained without administration of intrav enous contrast. Sagittal and coronal reformatted images were reviewed. All CT scans at this location are performed using CT dose reduction for ALARA by means of automated exposure control. FINDINGS: Abdomen/pelvis: Severe bilateral hydronephrosis is again seen which appears grossly unchanged since 01/26/2021 exam. Bilateral ureteral stents remain in similar position extending from the renal pelvise s to the bladder. There is extensive calcification along the course of the ureteral stents bilaterall y. Calcifications nearly engulfed the proximal left ureteral stent. There are calcifications along th e course of the mid to distal stents, right greater than left. There is minimal calcification associa rafael with the distal stents but this has decreased significantly since the previous exam. Multiple trent ateral renal stones, left greater than right appear stable. Stent malfunction should be considered. T he bladder is unremarkable. Liver is unremarkable. The gallbladder is contracted or surgically absent. No biliary dilatation. The pancreas, spleen, adrenal glands, bowel loops and reproductive organs are unremarkable. No evidence for free fluid, free air, acute inflammation or bulky adenopathy. Lungs/bones: No significant abnormality. IMPRESSION: Severe bilateral hydronephrosis and bilateral renal stones which appears grossly unchanged. There are extensive calcification along the course of the ureteral stents as described. Ureteral stent malfunc tion should be considered. There is no overwhelming change since 01/26/2021 exam. Signer Name: Jaime Ross Jr, MD Signed: 08/27/2021 8:44 AM Workstation Name: [id number]
[2021-08-27] MEDS ORDERED: SODIUM CHLORIDE 0.9% 500 ML 500 ML IV SCH (09:00)
[2021-08-27 09:18] LABS: Calcium 8.9 mg/dL (8.4-10.2)
[2021-08-27 09:26] LABS: Hematocrit 23.3 % (30.3-42.9); Hemoglobin 7.5 gm/dl (10.1-14.3); Mean Corpuscular HGB Conc 32 % (30-34); Mean Corpuscular Volume 74 fl (79-97); Platelet Count 483 K/mm3 (140-440); Red Blood Count 3.16 M/mm3 (3.65-5.03)
--- NOTE | 2021-08-27 09:26 | Short Stay Summary ---
Short Stay Documentation Date of service: 08/27/21 - History Principal diagnosis: Retained left ureteral stent Past Medical History: other (Placement of bilateral ureteral stents, the right has been removed and replaced following multiple procedures.) Past Surgical History: Other (Percutaneous and endoscopic removal of right ureteral stent) Social history: no significant social history - Allergies and Medications Current Medications: Allergies latex Allergy (Verified 02/20/21 17:20) Swelling Home Medications Medication Instructions Recorded Confirmed Last Taken Type ondansetron HCL [Zofran] 4 mg PO PRN PRN 01/26/21 07/30/21 07/01/21 09:00 History Mv-Mn/Folic Acid/Vit K/Weqi099 1 tab PO DAILY 02/20/21 07/30/21 07/01/21 09:00 History [Alive Once Daily Women 50 Plus] Ibuprofen 800 mg PO DAILY 04/22/21 07/30/21 07/01/21 09:00 History oxyCODONE /ACETAMINOPHEN [Percocet 1 tab PO Q4HR PRN #30 tab 05/04/21 07/30/21 07/01/21 09:00 Rx 5/325] Active Medications Sodium Chloride (Nacl 0.9% 500 Ml) 500 mls @ 50 mls/hr IV DIRECT TONA Stop: 08/27/21 20:00 - Physical exam General appearance: no acute distress Integumentary: no rash, no growths HEENT: Atraumatic Lungs: Normal air movement Breasts: deferred Heart: Regular rate Gastrointestinal: normal Female Genitourinary: deferred Rectal Exam: deferred Neurological: Normal gait, Normal speech - Brief post op/procedure progress note Date of procedure: 08/27/21 Pre-op diagnosis: Retained left ureteral stent Post-op diagnosis: same Procedure: Placement of the left nephroureteral catheter Anesthesia: local Surgeon: JOSE ALBERTO LANDRY Estimated blood loss: minimal Pathology: none Condition: stable - Disposition Condition at discharge: Good Disposition: 01 HOME / SELF CARE / HOMELESS Short Stay Discharge Plan Activity: advance as tolerated Weight Bearing Status: Weight Bear as Tolerated Diet: regular Wound: keep clean and dry, per your surgeon's advice Follow up with: ELIOT SOUZA MD [Primary Care Provider] - 7 Days
[2021-08-27 09:28] LABS: Red Cell Distribution Width 20.4 % (13.2-15.2)
[2021-08-27] MEDS ORDERED: MIDAZOLAM 2 MG/2 ML INJ ONE ×2 (09:35→10:19)
[2021-08-27] MEDS ORDERED: fentaNYL 100 MCG/2 ML INJ ONE ×2 (09:35→10:19)
[2021-08-27] MEDS ORDERED: LIDOCAINE (2%) 20 MG/1 ML VIAL 20 ML MDV INFILTRATI ONE ×3 (09:36→10:08)
[2021-08-27] MEDS ORDERED: SODIUM CHLORIDE 0.9% 500 ML 500 ML ONE (09:36)
[2021-08-27 09:49] LABS: INR 0.89 (0.87-1.13)
[2021-08-27 09:50] LABS: Partial Thromboplastin Time 28.1 Sec. (24.2-36.6)
[2021-08-27] MEDS ORDERED: MIDAZOLAM 2 MG/2 ML INJ IV ONE ×4 (10:02→10:34)
[2021-08-27] MEDS ORDERED: fentaNYL 100 MCG/2 ML INJ IV ONE ×4 (10:02→10:34)
--- NOTE | 2021-08-27 10:42 | Operative Report ---
Operative Report Operative Report: Exam: Placement of left-sided nephroureteral tube using ultrasound and fluoroscopic guidance Clinical indication: Patient with left hydronephrosis, left ureteral stent it has been retained for more than 4 years Date: 09/24/2021 Procedure: Following an explanation of the risks, benefits and alternatives; bernabe lana informed consent was obtained. The patient was brought to the angiographic suite and placed in prone position on the examination table. Initial ultrasound images of the back correlated with the CT obtained prior to the procedure which demonstrated markedly hydronephrotic left kidney with stone encrusted ureteral stent. I the patient's left back and flank were prepped and draped in the usual sterile fashion. 2% lidocaine was used for anesthesia. Under ultrasound guidance, a posterior middle dilator calyx was cannulated using a 15 cm 21-gauge needle. A 0.018 guidewire was advanced into the proximal ureter. The needle was removed and an AccuStick transition dilator placed over the guidewire. The 0.018 guidewire was exchanged for a 0.035 guidewire which was manipulated into the proximal ureter. A 5 Bulgarian sheath was placed over the guidewire and exchanged for the transition dilator. A vertebral catheter was then advanced over the guidewire and together the vertebral catheter and guidewire were manipulated into the pelvis and bladder. Initially, the guidewire would not pass and a variety of catheters and guidewires were utilized to advance the catheter into the bladder. Ultimately, an advantage guidewire and the vertebral catheter were manipulated into the bowel bladder and contrast is injected to document appropriate positioning. The vertebral catheter and 5 Bulgarian sheath were removed and a pigtail flush catheter advanced over the advantage guidewire to position the pigtail within the bladder. The catheter was capped and securely fastened to the skin surface using 2-0 Ethilon suture. The catheter was then coiled and sterile dressing applied. The patient tolerated the procedure well. There were no immediate post procedure complications. Conscious sedation was performed under the guidance of radiologic nursing. Continuous cardiopulmonary monitoring was utilized. Impression: 1) Ultrasound fluoroscopic guided placement of left-sided nephroureteral tube. 2) Patient with indwelling stone encrusted ureteral stent that will likely require urologic laser intervention prior to its removal.
[2021-08-27] MEDS ORDERED: oxyCODONE /ACETAMINOPHEN 5-325MG TAB ONE (12:19)
[2021-08-27 14:10] VITALS: BP 138/79
[2021-08-27] MEDS ORDERED: oxyCODONE /ACETAMINOPHEN 5-325MG TAB PO SCH (15:30)
== END 2021-08-27 07:23 | disposition home or self-care (01) ==
LOC: CATHLABREC 07:22
PROVIDERS: ATTEND Radiology Diagnostic Radiology
DX: N13.2 Hydronephrosis with renal and ureteral calculous obstruction (principal); R65.10 Systemic inflammatory response syndrome (SIRS) of non-infectious origin without acute organ dysfunction; I42.9 Cardiomyopathy, unspecified; Z72.89 Other problems related to lifestyle; Z98.890 Other specified postprocedural states; Z91.040 Latex allergy status; Z79.899 Other long term (current) drug therapy; Z87.440 Personal history of urinary (tract) infections
CPT/HCPCS: 36415; 50433; 74176; 80048; 85027; 85610; 85730; 99156; 99157; C1725; C1751; C1769; J1956; J2250; J3010; J3490; J7040; Q9967

== ENCOUNTER 2021-09-09 10:11 | Day surgery (SDC) | payer BC ==
[2021-09-09] MEDS ORDERED: LACTATED RINGERS 1,000 ML ONE (10:51)
[2021-09-09] MEDS ORDERED: ceFAZolin/STERILE WATER 2 GM/20 ML SYRINGE IV NR (11:00)
[2021-09-09] MEDS ORDERED: ceFAZolin/Water 2 GM/20 ML 2 GM/20 ML SYRINGE IV ONE (11:48)
[2021-09-09] MEDS ORDERED: LACTATED RINGERS 1,000 ML IV SCH (12:00)
[2021-09-09] MEDS ORDERED: MIDAZOLAM 2 MG/2 ML INJ ONE ×2 (12:31→13:03)
--- NOTE | 2021-09-09 12:32 | Anesthesia Day of Surgery ---
Anesthesia Day of Surgery - Day of Surgery Patient Examined: Yes Patient H&P Reviewed: Yes Patient is NPO: Yes
--- NOTE | 2021-09-09 12:36 | Anesthesia Consultation ---
Anesthesia Consult and Med Hx Date of service: 09/09/21 - Airway Anesthetic Teeth Evaluation: Good ROM Head & Neck: Adequate Mental/Hyoid Distance: Adequate Mallampati Class: Class I Intubation Access Assessment: Good - Pre-Operative Health Status ASA Pre-Surgery Classification: ASA2 Proposed Anesthetic Plan: General - Pulmonary Hx Smoking: No Hx Respiratory Symptoms: No Hx Pneumonia: Yes (Had + COVID [id number]) Hx Sleep Apnea: No (MARY PRE SCREEN LOW RISK) - Cardiovascular System Hx Hypertension: No Hx Heart Attack/AMI: No Hx Cardia Arrhythmia: Yes (remote hx irregular heartbeat; no recent symptoms, no meds) Hx Pacemaker: No Hx Internal Defibrillator: No Hx Heart Murmur: Yes (CAUSES NO PROBLEMS) - Central Nervous System Hx Seizures: No CVA: No Hx Back Pain: Yes (FROM STONES) Hx Psychiatric Problems: No - Gastrointestinal Hx Gastroesophageal Reflux Disease: No - Endocrine Hx Renal Disease: Yes (CRI Cr-1.4 and stones) Hx End Stage Renal Disease: No Hx Liver Disease: No Hx Insulin Dependent Diabetes: No Hx Non-Insulin Dependent Diabetes: No Hx Thyroid Disease: No - Hematic Hx Anemia: Yes (7.5/23.3) Hx Sickle Cell Disease: No - Other Systems Hx Alcohol Use: Yes (rare) Hx Substance Use: No Hx Cancer: No Hx Obesity: No - Additional Comments Anesthesia Medical History Comments: Has been here multiple times; last [id number]
[2021-09-09] MEDS ORDERED: ONDANSETRON 4 MG/2 ML INJ IV PRN (13:00)
[2021-09-09] MEDS ORDERED: HYDROmorphone 1 MG/1 ML INJ IV PRN ×2 (13:00)
[2021-09-09] MEDS ORDERED: MIDAZOLAM 2 MG/2 ML INJ IV NR (13:00)
[2021-09-09] MEDS ORDERED: propofoL 200 MG/20 ML VIAL IV ONE (13:03)
[2021-09-09] MEDS ORDERED: fentaNYL 100 MCG/2 ML INJ ONE (13:03)
[2021-09-09] MEDS ORDERED: dexAMETHasone 20 MG/5 ML VIAL ONE (14:32)
[2021-09-09] MEDS ORDERED: ONDANSETRON 4 MG/2 ML INJ ONE (14:32)
[2021-09-09] MEDS ORDERED: LIDOCAINE MPF (2%) 20 MG/1 ML VIAL 5 ML ONE (14:32)
[2021-09-09] MEDS ORDERED: PHENYLEPHRINE/NS 1,000 MCG/10 ML SYRINGE (OR USE) IV ONE (14:37)
[2021-09-09] MEDS ORDERED: GENTAMICIN 40 MG/ML VIAL 2 ML ONE (14:51)
[2021-09-09] MEDS ORDERED: WATER FOR IRRIG STERILE 2000 ML IR ONE (15:02)
[2021-09-09] MEDS ORDERED: WATER FOR IRRIG STERILE 1,500 ML BOTTLE IR ONE (15:03)
[2021-09-09] MEDS ORDERED: HYDROmorphone 1 MG/1 ML INJ ONE (15:30)
[2021-09-09] MEDS ORDERED: FUROSEMIDE 40 MG/4 ML INJ ONE (15:31)
--- NOTE | 2021-09-09 15:54 | Post Operative Note ---
Date of procedure: 09/09/21 Pre-op diagnosis: retained stent x 3 +yrs!! Post-op diagnosis: same Findings: large stone burden Procedure: cysto right ureteroscopy laser Anesthesia: DEEA Surgeon: HAN WHITAKER Estimated blood loss: minimal Pathology: none Condition: stable Disposition: PACU
--- NOTE | 2021-09-09 15:57 | Discharge Summary ---
Short Stay Discharge Plan Activity: other (no straining ) Weight Bearing Status: Full Weight Bearing Diet: low fat, low cholesterol, low salt Special Instructions: other Durable Medical Equipment Needed Upon Discharge: other (del cid stent ) Follow up with: KYLAH EUGENE MD [Primary Care Provider] - 7 Days HAN WHITAKER MD [Staff Physician] - 7 Days
--- NOTE | 2021-09-09 16:24 | XRay Report ---
XR abdomen 1V ap INDICATION / CLINICAL INFORMATION: BILATERAL URETERAL STONES. COMPARISON: None available. TECHNIQUE: Single image Supine AP abdomen. FINDINGS: TUBES / LINES: Left-sided percutaneous ureteral stent with additional bilateral ureteral stents. Prox imal left ureteral stone suggested. Contrast and/or mineralization of the left ureteral stent present . Bowel gas pattern unremarkable. Images demonstrate exchange of right ureteral stent in satisfactory positioning. BOWEL GAS PATTERN: No significant abnormality. FREE AIR / EXTRALUMINAL GAS: None seen. ADDITIONAL FINDINGS: Total fluoroscopy time 1 minute 2 seconds. IMPRESSION: 1. Exchange of right ureteral stent. Signer Name: Demarcus Harrell II, MD Signed: 09/09/2021 4:20 PM Workstation Name: [id number]
[2021-09-09] MEDS ORDERED: diphenhydrAMINE 50 MG/ML VIAL IV ONE (17:11)
[2021-09-09] MEDS ORDERED: FAMOTIDINE 20 MG/2 ML INJ IV ONE ×2 (17:11→17:14)
--- NOTE | 2021-09-09 17:12 | Post Anesthesia Evaluation ---
- Post Anesthesia Evaluation Patient Participated: Yes Airway Patent: Yes Stable Respiratory Function: Yes Nausea/Vomiting: No Temp > 96.8F: Yes Pain Manageable: Yes Adequeate Hydration: Yes Anesthesia Complications: No Block Receding Appropriately: Not Applicable Patient on Ventilator: No Other Comments: Latex del cid was inserted; H1 & H2 blockers ordered
[2021-09-09] MEDS ORDERED: diphenhydrAMINE 50 MG/ML VIAL ONE (17:13)
--- NOTE | 2021-09-09 17:26 | Operative Report ---
DATE OF SURGERY: 09/09/2021 PREOPERATIVE DIAGNOSIS: Retained stent, poorly compliant. POSTOPERATIVE DIAGNOSES: Retained stent, poorly compliant with right ureteral stones along the new stent and large number of left renal stones and left ureteral stones. PROCEDURE: Cystoscopy, right ureteroscopy, laser of large number of stones in the lower ureter with reinsertion of double-J stent and laser of the bladder stones around the left stent with trimming of the stent. SURGEON: Gavin Sharma MD ANESTHESIA: General. FINDINGS: This woman who has had stents for 3 years, did not purposely come back, she was busy and we are working to try to get her stent free and stone free. The right stent was removed, but there were a large number of fragments in the ureter. Left stent, she has a percutaneous nephroureteral stent alongside the old stent. At this point, she now presents for right ureteroscopy. DESCRIPTION OF PROCEDURE: The patient was brought to the Operating Room and placed on the operating table. Following induction of anesthesia, placed in lithotomy position, prepped and draped in usual sterile fashion. At this point, the right stent was grasped and we tried to get a wire through it. It did come out without difficulty, but we could see large number of stones in the distal and mid ureter. A wire coiled in the kidney without difficulty and laser ureteroscopy, laser at 6-8 pettit was carried out and large number of stones were fragmented. There was still significant fragments in the mid ureter. We did not get up that high, but we mostly got the large burden of approximately a 1.5 cm worth of stones. She will come back one more time for that. The patient tolerated the procedure well. Another stent was coiled in the kidney, 7-[place] Island[place] and we need to let that cool down. The old stent was grasped. Obviously, we could not pull it through because there were large amount of stones around the coil in the left kidney, but we did trim it, so that would not be that much when we go in from above and try to get that stent out. The patient tolerated the procedure well. No significant complication, brought to recovery room with a Ferrera catheter, should be discharged with a catheter. TID: [id number] RECEIPT: VICENTE/MARVIN/LIZBETH
[2021-09-09 20:52] VITALS: BP 140/71
== END 2021-09-09 20:20 | disposition home or self-care (01) ==
LOC: OR 10:11
PROVIDERS: ATTEND Urology
DX: N13.2 Hydronephrosis with renal and ureteral calculous obstruction (principal); T83.192A Other mechanical complication of indwelling ureteral stent, initial encounter; I42.9 Cardiomyopathy, unspecified; Z87.01 Personal history of pneumonia (recurrent); Z87.440 Personal history of urinary (tract) infections; Z72.89 Other problems related to lifestyle; Z98.890 Other specified postprocedural states; Y83.8 Other surgical procedures as the cause of abnormal reaction of the patient, or of later complication, without mention of misadventure at the time of the procedure
CPT/HCPCS: 52356; 74018; 81025; C1726; C1758; C1769; C2617; J0690; J1100; J1170; J1200; J1580; J1940; J2250; J2370; J2405; J2704; J3010; J3490; J7120; Q9967

== ENCOUNTER 2021-09-28 07:04 | Day surgery (SDC) | payer BC ==
[~2021-09-28 07:04] MED LIST changes: -.SODIUM CHLORIDE 0.9% IRRIG SOLN 3000 ML IR ONE; -ACETAMINOPHEN 500 MG TAB PO SCH; -MIDAZOLAM 2 MG/2 ML INJ IV NR; -MINERAL OIL Light (Sterile) 10 ML VIAL TP ONE; -SCOPOLAMINE TRANSDERMAL PATCH 72 HR TD NR; -SODIUM CHLORIDE 0.9% 500 ML 500 ML IV SCH
[2021-09-28] MEDS ORDERED: MINERAL OIL Light (Sterile) 10 ML VIAL TP ONE ×2 (07:55→10:12)
[2021-09-28] MEDS ORDERED: ceFAZolin/STERILE WATER 2 GM/20 ML SYRINGE IV NR (08:00)
[2021-09-28 08:10] LABS: Red Blood Count 3.78 M/mm3 (3.65-5.03)
[2021-09-28 08:11] LABS: Hematocrit 28.5 % (30.3-42.9); Hemoglobin 8.9 gm/dl (10.1-14.3); Mean Corpuscular HGB Conc 31 % (30-34); Mean Corpuscular Volume 75 fl (79-97); Platelet Count 425 K/mm3 (140-440)
[2021-09-28 08:15] LABS: Alanine Aminotransferase 8 units/L (7-56); Albumin 4.1 g/dL (3.9-5); BUN/Creatinine Ratio 18; Blood Urea Nitrogen 22 mg/dL (7-17); Calcium 9.5 mg/dL (8.4-10.2); Hemolysis Index 7
[2021-09-28] MEDS ORDERED: SODIUM CHLORIDE 0.9% 500 ML 500 ML IV NR (08:17)
[2021-09-28] MEDS ORDERED: HYDROmorphone 1 MG/1 ML INJ IV PRN (08:20)
[2021-09-28] MEDS ORDERED: ONDANSETRON 4 MG/2 ML INJ IV PRN (08:20)
[2021-09-28] MEDS ORDERED: ACETAMINOPHEN 500 MG TAB PO NR (08:20)
[2021-09-28] MEDS ORDERED: MORPHINE 2 MG/1 ML INJ IV NR (08:20)
--- NOTE | 2021-09-28 08:21 | Anesthesia Day of Surgery ---
Anesthesia Day of Surgery - Day of Surgery Patient Examined: Yes Patient H&P Reviewed: Yes Patient is NPO: Yes
--- NOTE | 2021-09-28 08:24 | Anesthesia Consultation ---
Anesthesia Consult and Med Hx Date of service: 09/28/21 - Airway Anesthetic Teeth Evaluation: Good (Missing) ROM Head & Neck: Adequate Mental/Hyoid Distance: Adequate Mallampati Class: Class I Intubation Access Assessment: Good - Pre-Operative Health Status ASA Pre-Surgery Classification: ASA2 Proposed Anesthetic Plan: General - Pulmonary Hx Smoking: No Hx Respiratory Symptoms: No Hx Sleep Apnea: No (MARY PRE SCREEN NEGATIVE RISK) - Cardiovascular System Hx Hypertension: No Hx Cardia Arrhythmia: Yes (remote hx irregular heartbeat; no recent symptoms, no meds) Hx Heart Murmur: Yes (CAUSES NO PROBLEMS) - Central Nervous System Hx Seizures: No Hx Back Pain: Yes (FROM STONES) Hx Psychiatric Problems: No - Gastrointestinal Hx Gastroesophageal Reflux Disease: No - Endocrine Hx Renal Disease: Yes (RETAINED KATHY STENTS X 4 YRS- CAUSED RENAL DAMAGE) Hx End Stage Renal Disease: No Hx Insulin Dependent Diabetes: No Hx Non-Insulin Dependent Diabetes: No Hx Thyroid Disease: No - Hematic Hx Anemia: Yes Hx Sickle Cell Disease: No - Other Systems Hx Alcohol Use: Yes (rare) Hx Substance Use: No Hx Cancer: No - Additional Comments Anesthesia Medical History Comments: Has been here multiple times; last [id number]
[2021-09-28] MEDS ORDERED: ACETAMINOPHEN 500 MG TAB ONE (08:26)
[2021-09-28] MEDS ORDERED: MAGNESIUM OXIDE 400 MG TAB PO NR (09:00)
[2021-09-28] MEDS ORDERED: CELECOXIB 200 MG CAP PO NR (09:00)
[2021-09-28] MEDS ORDERED: MIDAZOLAM 2 MG/2 ML INJ IV NR (09:00)
[2021-09-28] MEDS ORDERED: LIDOCAINE MPF (2%) 20 MG/1 ML VIAL 5 ML ONE (09:18)
[2021-09-28] MEDS ORDERED: propofoL 200 MG/20 ML VIAL IV ONE (09:18)
[2021-09-28] MEDS ORDERED: ROCURONIUM 50 MG/5 ML INJ IV ONE (09:18)
[2021-09-28] MEDS ORDERED: fentaNYL 100 MCG/2 ML INJ ONE (09:19)
[2021-09-28] MEDS ORDERED: KETOROLAC 30 MG/1 ML INJ ONE (09:32)
[2021-09-28] MEDS ORDERED: dexAMETHasone 20 MG/5 ML VIAL ONE (09:32)
[2021-09-28] MEDS ORDERED: ONDANSETRON 4 MG/2 ML INJ ONE (09:32)
[2021-09-28] MEDS ORDERED: IOHEXOL 300 MG/ML 50ML IV ONE (10:12)
[2021-09-28] MEDS ORDERED: WATER FOR IRRIG STERILE 1,500 ML BOTTLE IR ONE (10:12)
[2021-09-28] MEDS ORDERED: SODIUM CHLORIDE 0.9% IRRIG SOLN 2000 ML IR ONE (10:22)
[2021-09-28] MEDS ORDERED: GENTAMICIN 40 MG/ML VIAL 2 ML ONE (11:20)
[2021-09-28] MEDS ORDERED: NEOSTIGMINE 10MG/10 ML INJ MDV ONE (11:25)
[2021-09-28] MEDS ORDERED: GLYCOPYRROLATE 0.4 MG/2 ML INJ ONE (11:25)
[2021-09-28] MEDS ORDERED: SODIUM CHLORIDE 0.9% 100 ML ONE (11:25)
--- NOTE | 2021-09-28 11:46 | Post Operative Note ---
Date of procedure: 09/28/21 Pre-op diagnosis: retained stent stones Post-op diagnosis: same Findings: huge stones Procedure: perc neph laser stent Anesthesia: GETA Surgeon: HAN WHITAKER Estimated blood loss: minimal Pathology: list (stones stent) Specimen disposition: to lab Condition: stable Disposition: PACU
--- NOTE | 2021-09-28 11:47 | Discharge Summary ---
Short Stay Discharge Plan Activity: other (no straining ) Weight Bearing Status: Full Weight Bearing Diet: low fat, low cholesterol, low salt Wound: open to air Special Instructions: other (plugged ) Durable Medical Equipment Needed Upon Discharge: other (perc ) Follow up with: KYLAH EUGENE MD [Primary Care Provider] - 7 Days HAN WHITAKER MD [Staff Physician] - 7 Days
[2021-09-28] MEDS: HYDROmorphone 1 MG/1 ML INJ IV PRN ×2 (12:45→14:55)
--- NOTE | 2021-09-28 13:07 | Fluoroscopy Report ---
Intraoperative fluoroscopy nephrostogram left INDICATION: Left lithiasis. IMPRESSION: Anterograde access of the left collecting system performed. Large calculi project over th e lower pole of the left kidney. There is an indwelling left double-J ureteral stent Fluoroscopy time: 3.3 seconds. Fluoroscopic images: 6. Signer Name: Khoi Parra MD Signed: 09/28/2021 1:02 PM Workstation Name: [id number]
--- NOTE | 2021-09-28 16:24 | Operative Report ---
DATE OF SURGERY: 09/28/2021 PREOPERATIVE DIAGNOSIS: Three-year retained stent. POSTOPERATIVE DIAGNOSIS: Three-year retained stent. PROCEDURES: Left percutaneous nephrolithotomy with laser and ultrasound of the large stone around the stent and extraction of the 3-year-old stent, replacement of a stent. SURGEON: Dr. Gavin Sharma. ANESTHESIA: General. FINDINGS: This is a woman who had bilateral stents. She did not come back on purpose for 3 years. She knew all about it. She now presents for attempted removal of left side. DESCRIPTION OF PROCEDURE: The patient was brought to operating room and placed on the operating table. Following induction of anesthesia, Ferrera catheter was placed in a prone position, prepped and draped in the usual sterile fashion. The nephroureteral stent was cut and an Amplatz wire coiled in the bladder. We placed a safety wire down and secured that with silk. A snake coiled down the ureter and the tract was dilated to about 18-[place]. It was very tight, probably from old infection at the kidney, so we used the balloon. No significant bleeding was accomplished. There was some hydronephrosis, lots of urine coming out. Once we got up to 30-[place], we placed a stent and went from 24-28 and placed a 26 sheath. Flexible scopes and rigid scope showed lots of clots, which were removed. At this point, a stone was seen around the entire coil. We used the lithoclast and ultrasound and freed the loop out. We then used the flexible cystoscope with 200 fiber and went down the ureter for approximately 2-3 cm to free up the stent. We used a nephroureteral access device, just the inner core to soften up the stent and then we extracted the stent. It was covered with calcification. A new double-J coiled in the bladder and in the kidney. The patient tolerated the procedure well. We left a 20-[place] without difficulty and secured that with a plug. The patient tolerated the procedure well and brought to recovery room. No significant bleeding, in a stable condition. Plan will be observation or discharge late this afternoon. TID: [id number] RECEIPT: [id number] VICENTE/BOB
[2021-09-28 19:06] VITALS: BP 125/74
== END 2021-09-28 18:45 | disposition home or self-care (01) ==
LOC: OR 07:04
PROVIDERS: ATTEND Urology
DX: T83.192A Other mechanical complication of indwelling ureteral stent, initial encounter (principal); N13.2 Hydronephrosis with renal and ureteral calculous obstruction; Z91.040 Latex allergy status; Z79.899 Other long term (current) drug therapy; Z87.440 Personal history of urinary (tract) infections; Z72.89 Other problems related to lifestyle; Z98.890 Other specified postprocedural states; Z86.2 Personal history of diseases of the blood and blood-forming organs and certain disorders involving the immune mechanism; Y82.8 Other medical devices associated with adverse incidents; Y92.89 Other specified places as the place of occurrence of the external cause
CPT/HCPCS: 36415; 50081; 50431; 80053; 81025; 82365; 85027; 86850; 86900; 86901; 86920; 88300; C1726; C1758; C1769; C1885; C2617; J0690; J1100; J1170; J1580; J1815; J1885; J2250; J2270; J2405; J2704; J2710; J3010; J3490; J7120; Q9967; 88302

== ENCOUNTER 2021-10-28 09:31 | Day surgery (SDC) | payer BC ==
[2021-10-28] MEDS ORDERED: LACTATED RINGERS 1,000 ML IV SCH (10:30)
[2021-10-28] MEDS ORDERED: MIDAZOLAM 2 MG/2 ML INJ ONE (11:16)
--- NOTE | 2021-10-28 11:18 | Anesthesia Day of Surgery ---
Anesthesia Day of Surgery - Day of Surgery Patient Examined: Yes Patient H&P Reviewed: Yes Patient is NPO: Yes
--- NOTE | 2021-10-28 11:19 | Anesthesia Consultation ---
Anesthesia Consult and Med Hx Date of service: 10/28/21 - Airway Anesthetic Teeth Evaluation: Chipped (Missing) ROM Head & Neck: Adequate Mental/Hyoid Distance: Adequate Mallampati Class: Class II Intubation Access Assessment: Good - Pre-Operative Health Status ASA Pre-Surgery Classification: ASA2 Proposed Anesthetic Plan: General - Pulmonary Hx Smoking: No Hx Respiratory Symptoms: No Hx Sleep Apnea: No (MARY PRE SCREEN NEGATIVE RISK) - Cardiovascular System Hx Hypertension: No Hx Cardia Arrhythmia: Yes (remote hx irregular heartbeat; no recent symptoms, no meds) Hx Heart Murmur: Yes (CAUSES NO PROBLEMS) - Central Nervous System Hx Seizures: No Hx Back Pain: Yes (FROM STONES) Hx Psychiatric Problems: No - Gastrointestinal Hx Gastroesophageal Reflux Disease: No - Endocrine Hx Renal Disease: Yes (RETAINED KATHY STENTS X 4 YRS- CAUSED RENAL DAMAGE) Hx End Stage Renal Disease: No Hx Insulin Dependent Diabetes: No Hx Non-Insulin Dependent Diabetes: No Hx Thyroid Disease: No - Hematic Hx Anemia: Yes (NO TX WITH LAST SURGERY 8.9/28.5) Hx Sickle Cell Disease: No - Other Systems Hx Alcohol Use: Yes (rare) Hx Substance Use: No Hx Cancer: No Hx Obesity: No
[2021-10-28] MEDS ORDERED: ONDANSETRON 4 MG/2 ML INJ IV PRN (11:30)
[2021-10-28] MEDS ORDERED: HYDROmorphone 1 MG/1 ML INJ IV PRN ×2 (11:30)
[2021-10-28] MEDS ORDERED: ceFAZolin/Water 2 GM/20 ML 2 GM/20 ML SYRINGE IV ONE (11:38)
[2021-10-28] MEDS ORDERED: propofoL 200 MG/20 ML VIAL IV ONE (11:47)
[2021-10-28] MEDS ORDERED: LIDOCAINE MPF (2%) 20 MG/1 ML VIAL 5 ML ONE (11:47)
[2021-10-28] MEDS ORDERED: HYDROmorphone 1 MG/1 ML INJ ONE (11:47)
[2021-10-28] MEDS ORDERED: MIDAZOLAM 2 MG/2 ML INJ IV NR (12:00)
[2021-10-28] MEDS ORDERED: ceFAZolin/STERILE WATER 2 GM/20 ML SYRINGE IV NR (12:00)
[2021-10-28] MEDS ORDERED: WATER FOR IRRIG STERILE 2000 ML IR ONE ×2 (12:16)
[2021-10-28] MEDS ORDERED: WATER FOR IRRIG STERILE 1,500 ML BOTTLE IR ONE (12:17)
[2021-10-28] MEDS ORDERED: ONDANSETRON 4 MG/2 ML INJ ONE (12:24)
[2021-10-28] MEDS ORDERED: dexAMETHasone 20 MG/5 ML VIAL ONE (12:24)
[2021-10-28] MEDS ORDERED: KETOROLAC 30 MG/1 ML INJ ONE (13:18)
--- NOTE | 2021-10-28 13:34 | Post Operative Note ---
Pre-op diagnosis: stones retained stents Post-op diagnosis: same Findings: mid lowetr stones rt Procedure: cysto ureteroscopy laser j stent Anesthesia: GETA Surgeon: HAN WHITAKER Estimated blood loss: none Pathology: list (stones) Specimen disposition: to lab Condition: stable Disposition: PACU
--- NOTE | 2021-10-28 13:36 | Discharge Summary ---
Short Stay Discharge Plan Activity: other (no straining ) Weight Bearing Status: Full Weight Bearing Diet: regular Special Instructions: other (inc fluids ) Durable Medical Equipment Needed Upon Discharge: other (bilat stents ) Follow up with: KYLAH EUGENE MD [Primary Care Provider] - 7 Days HAN WHITAKER MD [Staff Physician] - 14 Days
[2021-10-28 15:24] VITALS: BP 127/52
--- NOTE | 2021-10-28 16:55 | Fluoroscopy Report ---
6 fluoroscopic images submitted Indication: Intraoperative localization Impression: 6 images of the abdomen were submitted for documentation purposes with radiology involve ment. Right-sided retrograde pyelogram was performed utilizing 20 mL of Omnipaque 300. A right-sided double-J ureteral stent was exchanged. Please refer to the operative note for complete details. Fluoroscopic time: 20 seconds Signer Name: Chidi Finnegan MD Signed: 10/28/2021 4:51 PM Workstation Name: [id number]
--- NOTE | 2021-10-28 18:17 | Operative Report ---
DATE OF SURGERY: 10/28/2021 PREOPERATIVE DIAGNOSIS: Long-term retained stent. POSTOPERATIVE DIAGNOSIS: Multiple staged procedures for retained stent. PROCEDURES: Cystoscopy, right retrograde, right ureteroscopy, laser of large amount of steinstrasse and mid ureteral stones and lower ureteral stones with excellent opening of the ureter and replacement of a smaller double-J stent. SURGEON: Gavin Sharma MD ANESTHESIA: General. FINDINGS: This is a woman who had a stent that she left in for 3 years. She now presented after we removed it and replaced it with newer stents with mid ureteral and lower ureteral stones on the right. She has stones in the left kidney, which have to be dealt at a later date. DESCRIPTION OF PROCEDURE: The patient was brought to the operating room and placed on the operating table. Following induction of anesthesia, placed in lithotomy position, prepped and draped in usual sterile fashion. Cystourethroscopy showed the stent, which was easily withdrawn over a wire. Ureteroscopy with the rigid scope showed lower ureteral stones, which were lasered and then mid ureteral stones, which were lasered until we saw wide open ureter. We lasered all the stones to small fragments and easily got above the area of narrowing. The epithelium where the stones was not great, but hopefully it will stay open once we get the stent out. The patient tolerated the procedure well. A lot of these stones were evacuated out with the [employer] evacuator, sent to pathology. The patient was brought to recovery room in stable condition. The next phase would be removing that stent and be sure the left ureter was opened and hopefully we can get the stents out; otherwise, she may need repeated stent changes if the ureter keeps scarring. TID: [id number] RECEIPT: [id number] VICENTE/FAYE/LIZBETH
== END 2021-10-28 15:30 | disposition home or self-care (01) ==
LOC: OR 09:31
PROVIDERS: ATTEND Urology
DX: T83.192A Other mechanical complication of indwelling ureteral stent, initial encounter (principal); N39.0 Urinary tract infection, site not specified; N20.0 Calculus of kidney; I42.9 Cardiomyopathy, unspecified; D64.9 Anemia, unspecified; Z91.040 Latex allergy status; Z88.8 Allergy status to other drugs, medicaments and biological substances; Z79.899 Other long term (current) drug therapy; Z72.89 Other problems related to lifestyle; Z98.890 Other specified postprocedural states; Y92.89 Other specified places as the place of occurrence of the external cause; Y82.8 Other medical devices associated with adverse incidents
CPT/HCPCS: 36415; 52356; 74420; 81025; 82365; C1758; C1769; C2617; J0690; J1100; J1170; J1885; J2250; J2405; J2704; J3490; J7120; Q9967